=== PATIENT | male | born 1980 | race Caucasian/White ===

== ENCOUNTER 2021-01-27 19:26 | Observation (INO) | payer OTHER ==
--- NOTE | 2021-01-27 19:46 | ED ---
General Adult HPI - General Chief complaint: Chest Pain Stated complaint: Chest Pain Time Seen by Provider: 01/27/21 19:29 Source: EMS Mode of arrival: EMS Limitations: no limitations - History of Present Illness Initial comments: Dictation was produced using [email or web address] dictation software. please excuse any grammatical, word or spelling errors. This patient was cared for during a federal and state declared state of emergency secondary to Covid 19 Chief Complaint: 40-year-old incarcerated male presents emergency department for chest pain History of Present Illness: 32-year-old male he is incarcerated currently. He does not take any medications. Patient states he is here today for chest pain. He's been having chest pain over the last 3-4 days. He states his symptoms are only apparent with exertion. States that his pain is a mild pressure to his substernal area radiates to his left upper extremity. At rest he feels no sympt oms. Denies any shortness of breath. He is brought in by EMS who reports that patient has a heart block. Patient states that he was told he has abnormal cardiac EKG. He was also follow-up with cardiology but never did as he ended up getting incarcerated. According to patient this was not addressed while he was in custodial. The ROS documented in this emergency department record has been reviewed and confirmed by me. Those systems with pertinent positive or negative responses have been documented in the HPI. All other systems are other negative and/or noncontributory. PHYSICAL EXAM: General Impression: Alert and oriented x3, not in acute distress HEENT: Normocephalic atraumatic, extra-ocular movements intact, pupils equal and reactive to light bilaterally, mucous membranes moist. Cardiovascular: Heart regular rate and rhythm Chest: Able to complete full sentences, no retractions, no tachypnea Abdomen: abdomen soft, non-tender, non-distended, no organomegaly Musculoskeletal: Pulses present and equal in all extremities, no peripheral edema Motor: no focal deficits noted Neurological: CN II-XII grossly intact, no focal motor or sensory deficits noted Skin: Intact with no visualized rashes Psych: Normal affect and mood ED course: 40y old male presents with chest pain. Vital signs upon arrival shows heart rate of 45, rest of vital signs within acceptable limits. Patient's well-appearing at bedside. Denies any symptoms currently. EKG shows complete heart block. Case is discussed with Dr. Owens numerical control programmer for cardiology does not recommend any intervention at this time. He requests that the thyroid function tests be ordered and the patient be admitted for cardiac monitoring. Laboratory evaluation obtained. CBC metabolic panel is unremarkable. Troponin is negative. TSH level is normal. Chest x-ray is nonacute. Patient be admitted for cardiac monitoring and cardiology consultation. Case discussed Dr. Zepeda who is willing to accept patient's care. EKG interpretation: Ventricular rate, complete heart block, QRS 116, QTc 381. , no QTC prolongation, no ST or T-wave changes noted. - Related Data Home Medications Medication Instructions Recorded Confirmed No Known Home Medications 01/27/21 01/27/21 Allergies Allergy/AdvReac Type Severity Reaction Status Date / Time No Known Allergies Allergy Verified 01/27/21 20:18 Review of Systems ROS Statement: Those systems with pertinent positive or pertinent negative responses have been documented in the HPI. ROS Other: All systems not noted in ROS Statement are negative. Past Medical History Past Medical History: No Reported History Additional Past Medical History / Comment(s): Back pain History of Any Multi-Drug Resistant Organisms: None Reported Past Surgical History: Appendectomy Additional Past Surgical History / Comment(s): back pain Past Psychological History: No Psychological Hx Reported Smoking Status: Former smoker Past Alcohol Use History: Occasional Past Drug Use History: Marijuana General Exam Limitations: no limitations Course Vital Signs 01/27/21 01/27/21 19:28 20:35 Temperature 98.5 F Pulse Rate 45 L 46 L Respiratory 18 18 Rate Blood Pressure 140/95 149/94 O2 Sat by Pulse 98 95 Oximetry Medical Decision Making - Lab Data Result diagrams: 01/27/21 19:45 01/27/21 19:45 Lab Results 01/27/21 01/27/21 01/27/21 Range/Units 19:45 19:45 19:45 WBC 9.9 (3.8-10.6) k/uL RBC 4.51 (4.30-5.90) m/uL Hgb 14.2 (13.0-17.5) gm/dL Hct 41.7 (39.0-53.0) % MCV 92.4 (80.0-100.0) fL MCH 31.5 (25.0-35.0) pg MCHC 34.1 (31.0-37.0) g/dL RDW 12.3 (11.5-15.5) % Plt Count 228 (150-450) k/uL MPV 8.0 Neutrophils % 63 % Lymphocytes % 24 % Monocytes % 7 % Eosinophils % 2 % Basophils % 1 % Neutrophils # 6.2 (1.3-7.7) k/uL Lymphocytes # 2.4 (1.0-4.8) k/uL Monocytes # 0.7 (0-1.0) k/uL Eosinophils # 0.2 (0-0.7) k/uL Basophils # 0.1 (0-0.2) k/uL Sodium 138 (137-145) mmol/L Potassium 4.2 (3.5-5.1) mmol/L Chloride 104 (98-107) mmol/L Carbon Dioxide 24 (22-30) mmol/L Anion Gap 10 mmol/L BUN 18 (9-20) mg/dL Creatinine 1.05 (0.66-1.25) mg/dL Est GFR (CKD-EPI)AfAm >90 (>60 ml/min/1.73 sqM) Est GFR (CKD-EPI)NonAf >90 (>60 ml/min/1.73 sqM) Glucose 99 (74-99) mg/dL Calcium 9.9 (8.4-10.2) mg/dL Magnesium 2.1 (1.6-2.3) mg/dL Troponin I <0.012 (0.000-0.034) ng/mL TSH 1.960 (0.465-4.680) mIU/L Disposition Clinical Impression: Bradycardia, Chest pain Disposition: ADMITTED IP TO THIS HOSP Condition: Fair Decision Time: 21:11
[2021-01-27 19:56] LABS: Basophils # (A) 0.1 k/uL (0-0.2); Basophils % (A) 1 %; Eosinophils # (A) 0.2 k/uL (0-0.7); Eosinophils % (A) 2 %; HCT 41.7 % (39.0-53.0); HGB 14.2 gm/dL (13.0-17.5); Lymphocytes # (A) 2.4 k/uL (1.0-4.8); Lymphocytes % (A) 24 %; MCH 31.5 pg (25.0-35.0); MCHC 34.1 g/dL (31.0-37.0); MCV 92.4 fL (80.0-100.0); Monocytes # (A) 0.7 k/uL (0-1.0); Monocytes % (A) 7 %; Neutrophils # (A) 6.2 k/uL (1.3-7.7); Neutrophils % (A) 63 %; Platelet Count 228 k/uL (150-450); RBC 4.51 m/uL (4.30-5.90); RDW 12.3 % (11.5-15.5); WBC 9.9 k/uL (3.8-10.6)
[2021-01-27 20:04] LABS: African American GFR (CKD) >90 (>60 ml/min/1.73 sqM); Anion Gap 10 mmol/L; Blood Urea Nitrogen 18 mg/dL (9-20); Calcium 9.9 mg/dL (8.4-10.2); Carbon Dioxide 24 mmol/L (22-30); Chloride 104 mmol/L (98-107); Glucose 99 mg/dL (74-99); Magnesium 2.1 mg/dL (1.6-2.3); Non-African American GFR(CKD) >90 (>60 ml/min/1.73 sqM); Potassium 4.2 mmol/L (3.5-5.1); Sodium 138 mmol/L (137-145)
[2021-01-27] MEDS ORDERED: ONDANSETRON 4 MG/2 ML VIAL IVP PRN (20:32)
[2021-01-27] MEDS ORDERED: NALOXONE 0.4 MG/ML 1 ML VIAL IV PRN (20:32)
[2021-01-27] MEDS ORDERED: ASPIRIN 81 MG PO STA (20:33)
[2021-01-27] MEDS: SODIUM CHLORIDE 0.9% 1,000 ML IV SCH (20:46)
--- NOTE | 2021-01-27 20:53 | XR ---
EXAMINATION TYPE: XR chest 1V portable DATE OF EXAM: 01/27/2021 COMPARISON: 01/06/2015. HISTORY: Chest pain. TECHNIQUE: Single frontal view of the chest is obtained. FINDINGS: There is no focal air space opacity, pleural effusion, or pneumothorax seen. The cardiac silhouette size is within normal limits. The osseous structures are intact. IMPRESSION: No acute process.
[2021-01-28 07:25] LABS: African American GFR (CKD) >90 (>60 ml/min/1.73 sqM); Anion Gap 7 mmol/L; Blood Urea Nitrogen 18 mg/dL (9-20); Calcium 9.6 mg/dL (8.4-10.2); Carbon Dioxide 26 mmol/L (22-30); Chloride 104 mmol/L (98-107); Glucose 84 mg/dL (74-99); Magnesium 2.2 mg/dL (1.6-2.3); Non-African American GFR(CKD) >90 (>60 ml/min/1.73 sqM); Potassium 4.2 mmol/L (3.5-5.1); Sodium 137 mmol/L (137-145)
--- NOTE | 2021-01-28 12:21 | ECHOF ---
Referral Reason:complete heart block MEASUREMENTS -------- HEIGHT: 185.4 cm WEIGHT: 91.6 kg BP: 144/72 RVIDd: 4.5 cm (< 3.3) IVSd: 1.4 cm (0.6 - 1.1) LVIDd: 4.9 cm (3.9 - 5.3) LVPWd: 1.4 cm (0.6 - 1.1) IVSs: 2.0 cm LVIDs: 3.4 cm LVPWs: 1.9 cm LAESV Index (A-L): 36.66 ml/m Ao Diam: 3.2 cm (2.0 - 3.7) AV Cusp: 2.6 cm (1.5 - 2.6) MV EXCURSION: 20.180 mm (> 18.000) MV EF SLOPE: 108 mm/s (70 - 150) EPSS: 0.5 cm MV E Paul: 1.20 m/s MV DecT: 222 ms MV A Paul: 0.68 m/s MV E/A Ratio: 1.78 RAP: 5.00 mmHg RVSP: 33.34 mmHg FINDINGS -------- Resting bradycardia (HR<60bpm). This was a technically adequate study. The left ventricular size is normal. Left ventricular wall thickness is normal. Overall left vent ricular systolic function is low-normal with, an EF between 50 - 55 %. The right ventricle is moderate to severely enlarged. LA is moderately dilated 34-39 ml/m2 The right atrium is mildly enlarged. Interatrial and interventricular septum intact. The aortic valve is trileaflet and appears structurally normal. There is no evidence of aortic regu rgitation. There is no evidence of aortic stenosis. Qrwp-ci-prsxbxmy mitral regurgitation is present. Mild tricuspid regurgitation present. There is borderline pulmonary artery hypertension. The righ t ventricular systolic pressure, as measured by Doppler, is 33.34mmHg. There is no pulmonic regurgitation present. IVC Not well visulized. There is no pericardial effusion. CONCLUSIONS -------- 1. The left ventricular size is normal. 2. Left ventricular wall thickness is normal. 3. Overall left ventricular systolic function is low-normal with, an EF between 50 - 55 %. 4. The right ventricle is moderate to severely enlarged. 5. LA is moderately dilated 34-39 ml/m2 6. The right atrium is mildly enlarged. 7. Gdmd-yd-tnzjiftz mitral regurgitation is present. 8. Mild tricuspid regurgitation present. 9. There is borderline pulmonary artery hypertension. 10. The right ventricular systolic pressure, as measured by Doppler, is 33.34mmHg. DUTY OFFICER: Trixie Corbin RDCS
[2021-01-28] MEDS: ACETAMINOPHEN TAB 325 MG TAB PO PRN ×2 (16:06→22:19)
--- NOTE | 2021-01-28 16:41 | HP ---
HISTORY AND PHYSICAL CHIEF COMPLAINT: Dizziness. HISTORY OF PRESENT ILLNESS: This is apparently the first known admission for this 40-year-old white male brought in from the skilled nursing. He noticed dizziness which had been intermittent. When he came to the emergency room he was found to have bradycardia and what looked like a 2:1 heart block with a first-degree AV block. He has had no chest pain, history of murmurs, rheumatic fever, orthopnea, PND, fever, chills, etc. REVIEW OF SYSTEMS: Otherwise completely unremarkable. Past medical history, family history, and personal and social histories reveal that he is not on any medication and NOT ALLERGIC TO ANY. Surgically he has had an appendectomy. He does not know about a family history. He smokes a pack of cigarettes a day. He did have slight discomfort in the chest radiating toward the neck and then into the left posterior chest. He had no cough or hemoptysis. He has had no fever or chills. PHYSICAL EXAMINATION: Pulse is 48 and regular. Respirations are 15. Blood pressure is 106/70. In general he appeared to be well developed, well nourished, in no acute distress. Skin color is normal. Skin is warm and dry. Lymph nodes are not enlarged. Head, ears, eyes, nose, mouth and throat were normal. Chest is clear to auscultation and percussion. Cardiac exam demonstrated normal sinus rhythm, with no murmurs or extra sounds. He did have bradycardia. The abdomen is soft and nontender without visceromegaly or masses. Bowel sounds are present. Extremities are normal. Neurologically he is intact. IMPRESSION: 1. Dizziness related to bradycardia. 2. First-degree AV block. 3. Second-degree block. PLAN: 1. Bedrest. 2. IV fluids. 3. Cardiology consult. MMODL / IJN: [id number] /
--- NOTE | 2021-01-28 16:41 | PN ---
PROGRESS NOTE CHIEF COMPLAINT: Bradycardia. HISTORY OF PRESENT ILLNESS: This gentleman is feeling fine, but he still has a slow pulse peripherally and he is dropping QRS complexes on his EKG. PHYSICAL EXAMINATION: Cardiac exam is normal. Chest is clear. Abdomen is soft, nontender. IMPRESSION: Bradycardia with first- and second-degree heart block. PLAN: Await cardiology evaluation. MMODL / IJN: [id number] /
--- NOTE | 2021-01-28 20:51 | CONS ---
CONSULTATION This is a 40-year-old gentleman who is currently in a fpc, was brought into the emergency room because of chest pain. Apparently he comes into the hospital with complaints of having anterior and anterolateral area of chest discomfort. His symptoms seem to occur sometimes at rest, sometimes with activity; very vague but persistent. His two sets of troponins are normal. He was recently seen by my associate Dr. Ko for atypical chest pain and bradycardia, for which he was asymptomatic. He also was found to have a 2:1 heart block when he arrived in the emergency room. He is asymptomatic in terms of dizziness, lightheadedness, syncope, near-syncope. He is very comfortable but complains of chest pain. Two sets of troponins are normal. He is resting comfortably without symptoms. PAST MEDICAL HISTORY: 1. Unremarkable for any hypertension, diabetes, myocardial infarction or CVA. 2. Patient was recently seen by my associate for atypical chest pain and asymptomatic bradycardia. He was advised a Holter and stress test, but these were not performed yet. 3. He is status post appendectomy. 4. MEDICATIONS: None. ALLERGIES: NONE. REVIEW OF SYSTEMS: Remarkable for chest pain. Does not have any hematemesis or melena, genitourinary symptoms, fever or chills or cough with expectoration. The patient is a former smoker. He used to use marijuana. He used to drink alcohol occasionally. PHYSICAL EXAMINATION: On examination, blood pressure is 130/78. Pulse rate is about 50 per minute. HEENT unremarkable. Fundus was not examined by me. Neck is supple. There is no JVD. I do not hear a carotid bruit. Heart exam reveals S1, S2 heard normally. There is no rub, murmur or gallop. Bradycardia noted. Lungs are clear. Abdomen is soft, nontender. Lower extremities reveal palpable pulses. No edema. Central nervous system grossly within normal limits. EKG revealed what seems to be an ectopic atrial rhythm with some 2:1 conduction with narrow QRS and early repolarization-type changes. I had the patient ambulate, and his heart rate went up to 76 beats per minute and there was 1:1 conduction. Rhythm was then sinus. LABORATORY DATA: His laboratory data, including thyroid function tests and troponin, were all within normal limits. IMPRESSION: 1. Atypical chest pain, not suggestive of angina. 2. Asymptomatic bradycardia. Probably patient has a high vagal tone. 3. Rule out any Cardiomyopathic process. RECOMMENDATIONS: I am recommending an echocardiogram and also a regular stress test to see his chronotropic response to exercise. I did some physical activity and did some EKG tracings and there is evidence of a good increase in heart rate and he was not symptomatic. We will do echocardiogram, a regular stress test and continue to monitor him. He will require a Cardiac MR down the road. This patient's presentation does not suggest any acute myocardial ischemia. I discussed this with him at length and we will continue to follow. Thank you very much for the consult. HEMA / EMELY: [id number] / KEYANNA
[2021-01-28] MEDS: SODIUM CHLORIDE 0.9% 1,000 ML IV SCH (23:29)
[2021-01-29 11:17] VITALS: BP 133/79; PULSE 43; RESP 20; TEMP 97.8
--- NOTE | 2021-01-29 12:03 | P.STRESS ---
- Stress Test Note Stress Test Results/Findings: Exam Performed: stress test Exam Date: 01/29/21 Reason for Exam: CP, ABN ECG Height: 6 ft 1 in Weight: 90.4 kg Protocol: EXERCISE TOLERANCE TEST Stage: 2 Duration of Exercise: 3:43 Resting Heart Rate: 44 Resting Blood Pressure: 160/92 Maximum Achieved Heart Rate: 96 Maximum Achieved Blood Pressure: 194/108 85% PMHR: 155 100% PMHR: 182 METS: 5.4 Technologist Comment: TEST TERMINATED DUE TO DIZZINESS AND LIGHTHEADEDNESS EXPERIENCED BY PT Stress Test Results/Findings: Patient underwent exercise stress EKG with a Mason protocol treadmill stress test. Patient exercised into Stage 1 for a total of 3 minutes and 43 seconds reaching a total of 5.4 METS. Patient's maximum heart rate was 96 which represented 53 % age-predicted maximum heart rate. Test was terminated secondary to patient becoming lightheaded and dizzy. Stress EKG findings: At baseline patient's EKG showed sinus rhythm, second-degree Mobitz type I AV block, early repolarization, no ST or T-wave abnormalities.. At peak exercise, EKG showed improvement in conduction with continued intermittent second-degree type I AV block, no significant ST or T wave abnormalities. Conclusions: 1. Inconclusive stress EKG secondary to inability to reach 85% maximum predicted heart rate 2. 2nd degree Mobitz type 1 AV block, improved with exercise 3. Lightheadedness with exercise however with improved AV conduction with exercise consistent with 2nd degree Mobitz type 1 AV block.
--- NOTE | 2021-01-29 12:16 | PN ---
PROGRESS NOTE Mr. Morgan Rodriguez is a 40-year-old gentleman who was incarcerated, was brought in from the [place] [facility]. After he came in, he had bradycardia and I saw him for a chest pain and bradycardia. Chest pain seems atypical. Troponins are negative. Bradycardia is noted. He has what seems to be a Wenckebach type block with a narrow QRS. I had him walk in the room yesterday and heart rate went up to 76 and he went with a 1:1 conduction. Today, I had him on a treadmill. He walked for about 3 minutes 45 seconds and felt near syncopal and fatigue had hypertensive response. Heart rate went from about 48 to 106 beats per minute and he had 1:1 conduction with narrow QRS as he exercised. The stress test is inconclusive. Echo revealed good systolic function with right ventricular enlargement and the right ventricular function is fair. No other significant abnormality on the echo. This patient has probably some significant conduction system disease at a fairly young age. We have to look for other causes. I am recommending a cardiac MR to be performed and this can be done as an outpatient. The patient can be discharged. Advised not to do strenuous activity, other than activities of daily living. I discussed this with the patient as well as with the motor coach tour operator who was here and I also spoke to Dr. Zepeda and suggested that the patient can be discharged and he should have a cardiac MR as an outpatient, probably at [facility] and follow up with Dr. Ko who has seen him already in the office. Vitals are stable today. Heart rate is about 48. No JVD. S1, S2 heard normally. Lungs are clear. Abdomen and lower extremity exam unchanged. The patient can be discharged with cardiac MR as an outpatient and no rate lowering agents. He is advised to see Dr. Ko in 1 week. MMODL / IJN: [id number] /
--- NOTE | 2021-01-29 18:25 | DS ---
DISCHARGE SUMMARY CHIEF COMPLAINT: Dizziness, and bradycardia. HISTORY OF PRESENT ILLNESS AND PHYSICAL EXAMINATION: Details of this man's history and physical can be found in the initial workup. LABORATORY STUDIES: While he was in the hospital, he had laboratory studies, details of which can be found in the laboratory section of his chart. COURSE IN THE HOSPITAL: After admission, he was placed on bedrest, started intravenous fluids and he was seen by Cardiology. He was placed on a treadmill and he could not boost his heart rate, reactive with activity and became dizzy. Cardiology felt that he should have further workup which would include a cardiac MRI which was not available here. It was agreed that he would be discharged, go back to the senior care and be followed up shortly after which we will make arrangements for him to go to [facility]. FINAL DIAGNOSES: 1. Bradycardia. 2. Second-degree heart block. OPERATIONS: None. CONSULTATION: Cardiology. He is improved. MMSIRI / BETHANYN: [id number] /
== END 2021-01-29 14:43 ==
LOC: EC 19:26 → 3SCARD 20:33 → INTOOBSV 20:33 → 3SCARD 21:12 → UNDODISIN 01-29 14:43
PROVIDERS: ADMIT Family Medicine; ATTEND Family Medicine
DX: I44.2 Atrioventricular block, complete (principal); Z20.822 Contact with and (suspected) exposure to COVID-19; Z87.891 Personal history of nicotine dependence; Z90.89 Acquired absence of other organs
CPT/HCPCS: 99285; 36415; 93005; 93017; 93306; 80048 ×2; 83735 ×2; 84443; 84484 ×2; 85025; 87636; 71045; G0378 ×3

== ENCOUNTER 2021-02-04 20:41 | Emergency (ER) | payer BC, OTHER ==
--- NOTE | 2021-02-04 21:05 | ED ---
Chest Pain HPI - General Chief Complaint: Chest Pain Stated Complaint: chest Pain, [place], SOB Time Seen by Provider: 02/04/21 20:54 Source: patient, police Mode of arrival: ambulatory Limitations: no limitations - History of Present Illness Complaint: chest pain Onset/Timin -: hour(s) Onset: during rest Pain Location: left chest, right chest Pain Radiation: none Severity: moderate Quality: aching Consistency: constant Improves With: nothing Worsens With: nothing Treatments Prior to Arrival: none - Related Data Home Medications Medication Instructions Recorded Confirmed No Known Home Medications 01/27/21 02/04/21 Allergies Allergy/AdvReac Type Severity Reaction Status Date / Time No Known Allergies Allergy Verified 02/04/21 23:25 Review of Systems ROS Statement: Those systems with pertinent positive or pertinent negative responses have been documented in the HPI. ROS Other: All systems not noted in ROS Statement are negative. Constitutional: Denies: fever, chills Respiratory: Denies: cough, dyspnea Cardiovascular: Reports: as per HPI, chest pain. Denies: palpitations, dyspnea on exertion, orthopnea Gastrointestinal: Denies: abdominal pain, nausea, vomiting Genitourinary: Denies: dysuria Musculoskeletal: Denies: back pain Skin: Denies: rash Neurological: Denies: headache, weakness, numbness, paresthesias EKG Findings - EKG Results: EKG: interpreted by VÍCTOR, normal axis, normal QRS, normal ST/T EKG shows: bradycardia (Underlying rhythm appears to be sinus with A-V dissociation. There is junctional bradycardia with occasional atrial capture. Previous ECGs do show complete heart block.) Past Medical History Past Medical History: No Reported History Additional Past Medical History / Comment(s): Back pain, bradycardia, 1st degree heart block History of Any Multi-Drug Resistant Organisms: None Reported Past Surgical History: Appendectomy Additional Past Surgical History / Comment(s): back pain Past Anesthesia/Blood Transfusion Reactions: No Reported Reaction Past Psychological History: No Psychological Hx Reported Smoking Status: Former smoker Past Alcohol Use History: Occasional Past Drug Use History: Marijuana General Exam Limitations: no limitations General appearance: alert, in no apparent distress Head exam: Present: atraumatic, normocephalic Eye exam: Present: normal appearance. Absent: scleral icterus, conjunctival injection Respiratory exam: Present: normal lung sounds bilaterally. Absent: respiratory distress, wheezes, rales, rhonchi, stridor, chest wall tenderness, accessory muscle use Cardiovascular Exam: Present: normal rhythm, bradycardia, normal heart sounds. Absent: systolic murmur, diastolic murmur, rubs, gallop GI/Abdominal exam: Present: soft. Absent: distended, tenderness, guarding, rebound, rigid, mass Extremities exam: Present: normal inspection, normal capillary refill. Absent: pedal edema, calf tenderness Back exam: Present: normal inspection. Absent: CVA tenderness (R), CVA tenderness (L) Neurological exam: Present: alert Skin exam: Present: warm, dry, intact, normal color. Absent: rash Course Vital Signs 02/04/21 02/04/21 02/04/21 20:49 21:07 21:20 Temperature 97.9 F Pulse Rate 46 L 42 L Pulse Rate [ 44 L Typist ] Respiratory 16 18 Rate Blood Pressure 135/87 135/86 O2 Sat by Pulse 97 97 Oximetry 02/04/21 22:00 Temperature Pulse Rate 43 L Pulse Rate [ Typist ] Respiratory 18 Rate Blood Pressure 126/80 O2 Sat by Pulse 97 Oximetry Chest Pain [facility] Patient is 40-year-old man with recurrent episode of chest pain. Given that the pain has been present since noon, over 9 hours now, which she EKG changes or elevated cardiac enzymes which are not present. He was seen by cardiology this month, with echocardiogram and portion of a stress test completed. They do want him to follow-up to have further cardiology workup as outpatient, including probably MRI. Discussed this plan with patient who is in agreement. Disposition Clinical Impression: Chest pain Disposition: HOME SELF-CARE Condition: Good Instructions (If sedation given, give patient instructions): Chest Pain (ED) Is patient prescribed a controlled substance at d/c from ED?: No Referrals: Beto Zepeda MD [Primary Care Provider] - 1-2 days
[2021-02-04 21:19] LABS: Basophils # (A) 0.1 k/uL (0-0.2); Basophils % (A) 1 %; Eosinophils # (A) 0.3 k/uL (0-0.7); Eosinophils % (A) 3 %; HCT 42.1 % (39.0-53.0); HGB 14.4 gm/dL (13.0-17.5); Lymphocytes # (A) 2.6 k/uL (1.0-4.8); Lymphocytes % (A) 26 %; MCH 31.6 pg (25.0-35.0); MCHC 34.3 g/dL (31.0-37.0); MCV 92.3 fL (80.0-100.0); Mean Platelet Volume 8.1; Monocytes # (A) 0.6 k/uL (0-1.0); Monocytes % (A) 7 %; Neutrophils # (A) 5.9 k/uL (1.3-7.7); Neutrophils % (A) 60 %; Platelet Count 235 k/uL (150-450); RBC 4.56 m/uL (4.30-5.90); RDW 12.2 % (11.5-15.5); WBC 9.8 k/uL (3.8-10.6)
[2021-02-04 21:27] VITALS: RESP 18
[2021-02-04 21:32] LABS: INR 0.9 (<1.2); Partial Thromboplastin Time 24.5 sec (22.0-30.0)
--- NOTE | 2021-02-04 21:32 | XR ---
EXAMINATION: XR chest 2V DATE AND TIME: 02/04/2021 9:24 PM CLINICAL INDICATION: PHH; Chest Pain TECHNIQUE: PA and lateral COMPARISON: 01/27/2021 FINDINGS: The lungs are clear. The pleural spaces are negative. The cardiac silhouette is not enlarged. The remainder of the mediastinal silhouette is unremarkable. The skeletal structures and soft tissues are negative for acute findings. IMPRESSION: NO ACUTE PROCESS.
[2021-02-04 21:46] LABS: ALT 14 U/L (4-49); AST 24 U/L (17-59); African American GFR (CKD) >90 (>60 ml/min/1.73 sqM); Albumin 4.4 g/dL (3.5-5.0); Alkaline Phosphatase 64 U/L (38-126); Anion Gap 8 mmol/L; Blood Urea Nitrogen 18 mg/dL (9-20); Calcium 9.6 mg/dL (8.4-10.2); Carbon Dioxide 24 mmol/L (22-30); Chloride 107 mmol/L (98-107); Glucose 120 mg/dL (74-99); Magnesium 2.3 mg/dL (1.6-2.3); Non-African American GFR(CKD) 79 (>60 ml/min/1.73 sqM); Potassium 4.2 mmol/L (3.5-5.1); Sodium 139 mmol/L (137-145); Total Bilirubin 0.3 mg/dL (0.2-1.3); Total Protein 7.2 g/dL (6.3-8.2)
[2021-02-04 23:57] VITALS: BP 130/76; PULSE 41; TEMP 98.3
== END 2021-02-04 23:57 | disposition home or self-care (01) ==
LOC: EC 20:41
DX: R07.89 Other chest pain (principal); R06.02 Shortness of breath; R11.0 Nausea; F12.90 Cannabis use, unspecified, uncomplicated; Z87.891 Personal history of nicotine dependence
CPT/HCPCS: 36415; 71046; 80053; 83735; 84484; 85025; 85379; 85610; 85730; 93005; 99285

== ENCOUNTER 2021-02-26 09:23 | Inpatient (IN) | payer OTHER ==
--- NOTE | 2021-02-26 09:37 | ED ---
Chest Pain HPI - General Chief Complaint: Chest Pain Stated Complaint: Cardiac Time Seen by Provider: 02/26/21 09:31 Source: patient, police, RN notes reviewed Mode of arrival: ambulatory Limitations: no limitations - History of Present Illness Initial Comments: 41-year-old male presents emergency Department from cardiology office for bradycardia. Patient has been diagnosed with type II heart block. Patient states started has dropped down in the 30s even into the 20s in the past he reports. Patient is brought in with police as he is incarcerated. Patient has no complaints other than feeling fatigued. Denies chest pain shortness breath headache dizziness nausea vomiting. - Related Data Home Medications Medication Instructions Recorded Confirmed No Known Home Medications 01/27/21 02/26/21 Allergies Allergy/AdvReac Type Severity Reaction Status Date / Time No Known Allergies Allergy Verified 02/26/21 11:28 Review of Systems ROS Statement: Those systems with pertinent positive or pertinent negative responses have been documented in the HPI. ROS Other: All systems not noted in ROS Statement are negative. Past Medical History Past Medical History: No Reported History Additional Past Medical History / Comment(s): Back pain, bradycardia, 1st degree heart block History of Any Multi-Drug Resistant Organisms: None Reported Past Surgical History: Appendectomy Additional Past Surgical History / Comment(s): back pain Past Anesthesia/Blood Transfusion Reactions: No Reported Reaction Past Psychological History: No Psychological Hx Reported Smoking Status: Former smoker Past Alcohol Use History: Occasional Past Drug Use History: Marijuana General Exam Limitations: no limitations General appearance: alert, in no apparent distress Head exam: Present: atraumatic, normocephalic, normal inspection Neck exam: Present: normal inspection. Absent: tenderness, meningismus, lymphadenopathy Respiratory exam: Present: normal lung sounds bilaterally. Absent: respiratory distress, wheezes, rales, rhonchi, stridor Cardiovascular Exam: Present: normal rhythm, bradycardia, normal heart sounds. Absent: systolic murmur, diastolic murmur, rubs, gallop, clicks GI/Abdominal exam: Present: soft, normal bowel sounds. Absent: distended, tenderness, guarding, rebound, rigid Course Vital Signs 02/26/21 02/26/21 09:24 10:09 Temperature 98.3 F Pulse Rate 43 L Pulse Rate [ 33 L Journeyman Lineman ] Respiratory 18 Rate Blood Pressure 122/77 O2 Sat by Pulse 97 Oximetry Chest Pain [facility] Patient's son in for heart block patient has been bradycardic. Patient be admitted for cardiology evaluation probable pacemaker. Disposition Clinical Impression: Complete heart block, Bradycardia Disposition: ADMITTED IP TO THIS HOSP Referrals: Beto Zepeda MD [STAFF PHYSICIAN] - 1-2 days
[2021-02-26 10:14] LABS: Basophils # (A) 0.1 k/uL (0-0.2); Basophils % (A) 1 %; Eosinophils # (A) 0.3 k/uL (0-0.7); Eosinophils % (A) 4 %; HCT 45.5 % (39.0-53.0); HGB 14.8 gm/dL (13.0-17.5); Lymphocytes # (A) 2.3 k/uL (1.0-4.8); Lymphocytes % (A) 25 %; MCH 30.3 pg (25.0-35.0); MCHC 32.5 g/dL (31.0-37.0); MCV 93.3 fL (80.0-100.0); Mean Platelet Volume 8.2; Monocytes # (A) 0.6 k/uL (0-1.0); Monocytes % (A) 6 %; Neutrophils # (A) 5.5 k/uL (1.3-7.7); Neutrophils % (A) 61 %; Platelet Count 241 k/uL (150-450); RBC 4.87 m/uL (4.30-5.90); RDW 13.1 % (11.5-15.5); WBC 9.2 k/uL (3.8-10.6)
[2021-02-26 10:20] LABS: ALT 14 U/L (4-49); AST 23 U/L (17-59); African American GFR (CKD) >90 (>60 ml/min/1.73 sqM); Albumin 4.2 g/dL (3.5-5.0); Alkaline Phosphatase 54 U/L (38-126); Anion Gap 6 mmol/L; Blood Urea Nitrogen 13 mg/dL (9-20); Calcium 9.2 mg/dL (8.4-10.2); Carbon Dioxide 27 mmol/L (22-30); Chloride 107 mmol/L (98-107); Glucose 90 mg/dL (74-99); Magnesium 2.3 mg/dL (1.6-2.3); Non-African American GFR(CKD) >90 (>60 ml/min/1.73 sqM); Potassium 4.4 mmol/L (3.5-5.1); Sodium 140 mmol/L (137-145); Total Bilirubin 0.3 mg/dL (0.2-1.3); Total Protein 6.7 g/dL (6.3-8.2)
[2021-02-26 10:25] LABS: INR 0.9 (<1.2); Partial Thromboplastin Time 25.3 sec (22.0-30.0); Prothrombin Time 9.9 sec (9.0-12.0)
--- NOTE | 2021-02-26 11:34 | XR ---
EXAMINATION TYPE: XR chest 2V DATE OF EXAM: 02/26/2021 COMPARISON: Chest x-ray 02/04/2021 HISTORY: Chest pain, shortness of breath TECHNIQUE: Frontal and lateral views of the chest are obtained. FINDINGS: There is no focal air space opacity, pleural effusion, or pneumothorax seen. The cardiac silhouette size is within normal limits. There are overlying leads. The osseous structures are intac t. IMPRESSION: No acute cardiopulmonary process.
[2021-02-26] MEDS ORDERED: NALOXONE 0.4 MG/ML 1 ML VIAL IV PRN (11:39)
--- NOTE | 2021-02-26 15:21 | P.CRDCN ---
History of Present Illness History of present illness: HISTORY OF PRESENTING ILLNESS This is a pleasant 41-year-old male with no significant past medical history. He follows in the office with Dr. Ko. Patient is currently incarcerated at [facility], he presented to Dr. Ko's office this morning for a follow up appointment and was sent to the emergency department given his symptoms of dizziness, lightheadedness and bradycardia and possible permanent pacemaker placement. Patient was admitted to the hospital on 01/27/2021 with chest pain and bradycardia. EKG revealed 2:1 AV block with a narrow QRS. He underwent exercise stress test, he was able to walk for about 3 minutes and 45 seconds and felt near syncopal and fatigued and a hypertensive response and the test was stopped. His heart rate went from about 48-106 bpm and he had a 1:1 conduction with narrow QRS as he exercised. Echocardiogram revealed EF 50-55%, RV is moderately to severely enlarged, RA is mildly enlarged, milt to moderate Mitral regurgitation, mild tricuspid regurgitation, borderline pulmonary artery hypertension, with RVSP 33mmHg. He was advised to get a cardiac MRI as an outpatient and follow up with Dr. Zepeda and Dr. Ko in the outpatient setting. Patient did not follow up at [facility] to get cardiac MRI. Today, patient is seen and examined in the emergency department no acute distress. He states he does occasionally get dizzy and lightheaded. He mostly feels tired. He sometimes gets a slight headache but relates this to caffeine. He denies chest pain, shortness of breath, lower extremity edema, syncope or pre-syncope symptoms, orthopnea or PND. Denies history of diabetes, stroke, [place], or hypertension. He is a non-smoker. Occasional marijuana use. Denies alcohol use. EKG reveals sinus bradycardia with AV disassociation. Prior EKGs in the past dating back to 2014, patient in sinus bradycardia 2nd degree heart block. Laboratory data reviewed, troponin negative x 1, CBC unremarkable, sodium 140, potassium 4.4, BUN 13, serum creatinine 0.86, magnesium 2.3, TSH within normal limits, COVID-19 negative. He does not take any medications. Chest xray No acute cardiopulmonary process REVIEW OF SYSTEMS At the time of my exam: CONSTITUTIONAL: +dizziness, +lightheadedness, Denies fever or chills. CARDIOVASCULAR: Denies chest pain, shortness of breath, orthopnea, PND or palpitations. RESPIRATORY: Denies cough. GASTROINTESTINAL: Denies abdominal pain, diarrhea, constipation, nausea or vomiting. MUSCULOSKELETAL: Denies myalgias. NEUROLOGIC: +headache Denies numbness, tingling, or weakness. ENDOCRINE: Denies fatigue, weight change, polydipsia or polyurina. GENITOURINARY: Denies burning, hematuria or urgency with micturation. HEMATOLOGIC: Denies history of anemia or bleeding. PHYSICAL EXAMINATION Blood pressure 122/77 heart rate 30s-40s afebrile and maintaining oxygen saturation 98% on room air CONSTITUTIONAL: No apparent distress. HEENT: Head is normocephalic. Pupils are equal, round. Sclerae anicteric. Mucous membranes of the mouth are moist. No JVD. No carotid bruit. CHEST EXAMINATION: Lungs are clear to auscultation. No chest wall tenderness is noted on palpation or with deep breathing. HEART EXAMINATION: Bradycardic regular rate and rhythm. S1, S2 heard. No murmurs, gallops or rub. ABDOMEN: Soft, nontender. Positive bowel sounds. EXTREMITIES: 2+ peripheral pulses, no lower extremity edema and no calf tenderness. NEUROLOGIC EXAMINATION: Patient is awake, alert and oriented x3. ASSESSMENT Sinus Bradycardia, patient with symptoms of lightheadedness and dizziness. No syncope or loss of consciousness. Dating back to 2014 patient has had EKG with sinus bradycardia with 2nd degree heart block and AV dissassociation. Given patient's young age unclear etiology at this time. PLAN -We will continue to monitor patient overnight -Continue cardiac telemetry -No plan for pacemaker implantation at this time. We will continue to monitor patient. -Further recommendations to follow Nurse Practitioner note has been reviewed, I agree with a documented findings and plan of care. Patient was seen and examined. Past Medical History Past Medical History: No Reported History Additional Past Medical History / Comment(s): Back pain, bradycardia, 1st degree heart block History of Any Multi-Drug Resistant Organisms: None Reported Past Surgical History: Appendectomy Additional Past Surgical History / Comment(s): back pain Past Anesthesia/Blood Transfusion Reactions: No Reported Reaction Past Psychological History: No Psychological Hx Reported Smoking Status: Former smoker Past Alcohol Use History: Occasional Past Drug Use History: Marijuana Medications and Allergies Home Medications Medication Instructions Recorded Confirmed Type No Known Home Medications 01/27/21 02/26/21 History Allergies Allergy/AdvReac Type Severity Reaction Status Date / Time No Known Allergies Allergy Verified 02/26/21 11:28 Physical Exam Vitals: Vital Signs Temp Pulse Pulse Resp BP Pulse Ox 02/26/21 12:45 98.2 F 32 L 18 154/89 98 02/26/21 10:09 33 L 02/26/21 09:24 98.3 F 43 L 18 122/77 97 Intake and Output 02/25/21 02/26/21 02/26/21 22:59 06:59 14:59 Other: Weight 96.162 kg Results 02/26/21 09:58 02/26/21 09:58 Cardiac Enzymes 02/26/21 02/26/21 Range/Units 09:58 09:58 AST 23 (17-59) U/L Troponin I <0.012 (0.000-0.034) ng/mL Coagulation 02/26/21 Range/Units 09:58 PT 9.9 (9.0-12.0) sec APTT 25.3 (22.0-30.0) sec CBC 02/26/21 Range/Units 09:58 WBC 9.2 (3.8-10.6) k/uL RBC 4.87 (4.30-5.90) m/uL Hgb 14.8 (13.0-17.5) gm/dL Hct 45.5 (39.0-53.0) % Plt Count 241 (150-450) k/uL Comprehensive Metabolic Panel 02/26/21 Range/Units 09:58 Sodium 140 (137-145) mmol/L Potassium 4.4 (3.5-5.1) mmol/L Chloride 107 (98-107) mmol/L Carbon Dioxide 27 (22-30) mmol/L BUN 13 (9-20) mg/dL Creatinine 0.86 (0.66-1.25) mg/dL Glucose 90 (74-99) mg/dL Calcium 9.2 (8.4-10.2) mg/dL AST 23 (17-59) U/L ALT 14 (4-49) U/L Alkaline Phosphatase 54 (38-126) U/L Total Protein 6.7 (6.3-8.2) g/dL Albumin 4.2 (3.5-5.0) g/dL Current Medications Generic Name Dose Route Start Last Admin Trade Name Freq PRN Reason Stop Dose Admin Naloxone HCl 0.2 mg 02/26/21 11:39 Naloxone 0.4 Mg/Ml 1 Ml Vial IV Q2M PRN Opioid Reversal Intake and Output 02/25/21 02/26/21 02/26/21 22:59 06:59 14:59 Other: Weight 96.162 kg Patient Weight 02/27/21 06:59 Weight 96.162 kg 02/26/21 09:58 02/26/21 09:58
[2021-02-26] MEDS: HEPARIN SODIUM,PORCINE/PF 5,000 UNIT/0.5 ML SYRINGE SQ SCH (21:41)
[2021-02-26] MEDS: FAMOTIDINE 20 MG/2 ML VIAL IV SCH (21:41)
--- NOTE | 2021-02-26 21:43 | P.HPIM ---
History of Present Illness This is a pleasant 41 years old male with no significant past medical history, he is a patient of Dr. Zepeda however he is currently incarcerated and an officer is at bedside. He was sent by director of instrumental music for bradycardia, he is fol low-up for chest pain on and off, last time was about 2 weeks. Patient currently complaining only from lightheaded only but no overt dizziness, and no chest pain , dyspnea. pt is found to have sinus bradycardia , and has EKG: Second degree block and AV dissociation Patient has been evaluated by director of instrumental music and recommended monitoring now with no pacemaker Vitals and labs are stable including TSH is 2.4 which is normal Review of Systems CONSTITUTIONAL: No fever, no malaise, no fatigue. HEENT: No recent visual problems or hearing problems. Denied any sore throat. CARDIOVASCULAR: No orthopnea, PND, no palpitations, no syncope. PULMONARY: No shortness of breath, no cough, no hemoptysis. GASTROINTESTINAL: No diarrhea, no nausea, no vomiting, no abdominal pain. Normoactive bowel sounds. NEUROLOGICAL: No headaches, no weakness, no numbness. HEMATOLOGICAL: Denies any bleeding or petechiae. GENITOURINARY: Denies any burning micturition, frequency, or urgency. MUSCULOSKELETAL/RHEUMATOLOGICAL: Denies any joint pain, swelling, or any muscle pain. ENDOCRINE: Denies any polyuria or polydipsia. Past Medical History Past Medical History: No Reported History Additional Past Medical History / Comment(s): Back pain, bradycardia, 1st degree heart block History of Any Multi-Drug Resistant Organisms: None Reported Past Surgical History: Appendectomy Additional Past Surgical History / Comment(s): back pain Past Anesthesia/Blood Transfusion Reactions: No Reported Reaction Past Psychological History: No Psychological Hx Reported Smoking Status: Former smoker Past Alcohol Use History: Occasional Past Drug Use History: Marijuana - Past Family History Mother Family Medical History: Diabetes Mellitus Additional Family Medical History / Comment(s): enlarged heart Medications and Allergies Home Medications Medication Instructions Recorded Confirmed Type No Known Home Medications 01/27/21 02/26/21 History Allergies Allergy/AdvReac Type Severity Reaction Status Date / Time No Known Allergies Allergy Verified 02/26/21 11:28 Physical Exam Vitals: Vital Signs Temp Pulse Pulse Resp BP Pulse Ox 02/26/21 17:00 40 L 18 136/80 97 02/26/21 16:00 98.2 F 34 L 18 137/72 97 02/26/21 15:18 97 02/26/21 14:30 32 L 18 153/95 97 02/26/21 12:45 98.2 F 32 L 18 154/89 98 02/26/21 10:09 33 L 02/26/21 09:24 98.3 F 43 L 18 122/77 97 Intake and Output 02/26/21 02/26/21 02/26/21 06:59 14:59 22:59 Other: Weight 96.162 kg GENERAL: The patient is alert and oriented x3, not in any acute distress. Well developed, well nourished. HEENT: Pupils are round and equally reacting to light. EOMI. No scleral icterus. No conjunctival pallor. Normocephalic, atraumatic. No pharyngeal erythema. No thyromegaly. CARDIOVASCULAR: S1 and S2 present. No murmurs, rubs, or gallops. PULMONARY: Chest is clear to auscultation, no wheezing or crackles. ABDOMEN: Soft, nontender, nondistended, normoactive bowel sounds. No palpable organomegaly. MUSCULOSKELETAL: No joint swelling or deformity. EXTREMITIES: No cyanosis, clubbing, or pedal edema. NEUROLOGICAL: Gross neurological examination did not reveal any focal deficits. SKIN: No rashes. No petechiae Results CBC & Chem 7: 02/26/21 09:58 02/26/21 09:58 Assessment and Plan Assessment: Sinus bradycardia with 1 EKG showing Second degree block and AV dissociation Lightheadedness secondary to both Plan: This is a pleasant 41 years old male who presents with sinus bradycardia and lightheadedness. Cardiology of the case recommended monitoring now Labs and medication were reviewed.. Continue same treatment. Continue with symptomatic treatment. Resume home medication. Monitor lytes and vitals. DVT and GI prophylaxis. Further recommendationsas per clinical course of the patient DVT prophylaxis: Subcutaneous heparin GI Prophylaxis: Pepcid
[2021-02-27] MEDS: HEPARIN SODIUM,PORCINE/PF 5,000 UNIT/0.5 ML SYRINGE SQ SCH ×2 (08:54→20:13)
[2021-02-27] MEDS: FAMOTIDINE 20 MG/2 ML VIAL IV SCH ×2 (08:54→20:13)
[2021-02-27 09:52] LABS: African American GFR (CKD) >90 (>60 ml/min/1.73 sqM); Anion Gap 5 mmol/L; Blood Urea Nitrogen 20 mg/dL (9-20); Calcium 9.3 mg/dL (8.4-10.2); Carbon Dioxide 31 mmol/L (22-30); Chloride 104 mmol/L (98-107); Glucose 104 mg/dL (74-99); Magnesium 2.2 mg/dL (1.6-2.3); Non-African American GFR(CKD) >90 (>60 ml/min/1.73 sqM); Potassium 4.5 mmol/L (3.5-5.1); Sodium 140 mmol/L (137-145)
--- NOTE | 2021-02-27 12:52 | P.PN ---
Subjective This is a pleasant 41 years old male with no significant past medical history, he is a patient of Dr. Ramirez however he is currently incarcerated and an officer is at bedside. He was sent by global account manager for bradycardia, he is follow-up for chest pain on and off, last time was about 2 weeks. Patient currently complaining only from lightheaded only but no overt dizziness, and no chest pain , dyspnea. pt is found to have sinus bradycardia , and has EKG: Second degree block and AV dissociation Patient has been evaluated by global account manager and recommended monitoring now with no pacemaker Vitals and labs are stable including TSH is 2.4 which is normal 02/27/2021 Patients with no significant lightheadedness today. No chest pain or dyspnea. Heart rates to 38-42. CBC is unremarkable today. Prepress Proofer on the case and we will keep monitoring for now. Staff contacted Dr. ramirez told him he discharge the patient from the surface Objective - Vital Signs Vital signs: Vital Signs Temp 97.5 F L 02/27/21 08:51 Pulse 42 L 02/27/21 11:22 Resp 16 02/27/21 11:22 BP 115/68 02/27/21 11:22 Pulse Ox 96 02/27/21 11:22 Intake & Output 02/26/21 02/27/21 02/27/21 18:59 06:59 18:59 Intake Total 400 120 Balance 400 120 Weight 96.162 kg 92.4 kg Intake: Oral 400 120 Other: Voiding Method Toilet Toilet Urinal Urinal # Voids 2 - Exam GENERAL: The patient is alert and oriented x3, not in any acute distress. Well developed, well nourished. HEENT: Pupils are round and equally reacting to light. EOMI. No scleral icterus. No conjunctival pallor. Normocephalic, atraumatic. No pharyngeal erythema. No thyromegaly. CARDIOVASCULAR: S1 and S2 present. No murmurs, rubs, or gallops. PULMONARY: Chest is clear to auscultation, no wheezing or crackles. ABDOMEN: Soft, nontender, nondistended, normoactive bowel sounds. No palpable organomegaly. MUSCULOSKELETAL: No joint swelling or deformity. EXTREMITIES: No cyanosis, clubbing, or pedal edema. NEUROLOGICAL: Gross neurological examination did not reveal any focal deficits. SKIN: No rashes. no petechiae. - Labs CBC & Chem 7: 02/26/21 09:58 02/27/21 09:01 Labs: Abnormal Lab Results - Last 24 Hours (Table) 02/27/21 Range/Units 09:01 Carbon Dioxide 31 H (22-30) mmol/L Glucose 104 H (74-99) mg/dL Assessment and Plan Assessment: Sinus bradycardia with 1 EKG showing Second degree block and AV dissociation Lightheadedness secondary to both Plan: This is a pleasant 41 years old male who presents with sinus bradycardia and lightheadedness. Cardiology of the case recommended monitoring now Labs and medication were reviewed.. Continue same treatment. Continue with symptomatic treatment. Resume home medication. Monitor lytes and vitals. DVT and GI prophylaxis. Further recommendationsas per clinical course of the patient DVT prophylaxis: Subcutaneous heparin GI Prophylaxis: Pepcid
--- NOTE | 2021-02-27 13:41 | PN ---
PROGRESS NOTE Mr. Rodriguez is a 41-year-old male with known history of second-degree AV block who was admitted yesterday with symptoms of bradycardia. He has no syncope. He continues to be bradycardic with second-degree AV block with episode of Mobitz type 2. There is no clear evidence of complete heart block. He has no palpitation. No syncope. He has a headache. He denies any nausea. He continues to be at this time on heparin subcu. PHYSICAL EXAMINATION: Blood pressure 115/60 with a heart rate in the 40s. LUNGS: Clear. HEART: Regular rate and rhythm S1, S2. No S3. No rub with no gallop. ABDOMEN: Soft and nontender. EXTREMITIES: No edema. No long pauses were noted on the monitor. IMPRESSION: Episode of bradycardia with second-degree AV block that has been noted in the past dating back a few years ago. RECOMMENDATION: We will continue to observe him. He may have a congenital AV block. At this time there are no long pauses that required a pacemaker. We will observe for next 24 hours. The patient was scheduled to go to [facility] to undergo cardiac MRI because of enlargement in the right ventricle that was noted on the most recent echocardiogram. We will see how is his rhythm in the next 24 hours. If there is no significant pauses, then he may be able to be discharged and followed as an outpatient. HEMA / BETHANYN: [id number] /
[2021-02-28] MEDS: FAMOTIDINE 20 MG/2 ML VIAL IV SCH (08:06)
[2021-02-28] MEDS: HEPARIN SODIUM,PORCINE/PF 5,000 UNIT/0.5 ML SYRINGE SQ SCH ×2 (08:06→19:57)
--- NOTE | 2021-02-28 12:24 | PN ---
PROGRESS NOTE Mr. Rodriguez is a 41-year-old male who presented with symptoms of bradycardia. He has a known history of AV block. He continues to be bradycardic. He had a pause yesterday. He felt dizzy. He complains of some headache, but no chest pain. No syncope. He is on Pepcid and subcu heparin. PHYSICAL EXAMINATION: Blood pressure 120/60 with a heart rate in the 30s to 40s. LUNGS: Clear. HEART: Regular rate and rhythm S1, S2. No S3. No rub. ABDOMEN: Soft, nontender. EXTREMITIES: No edema. IMPRESSION: Bradycardia with prior episode of second-degree AV block and long pauses. RECOMMENDATION: We will continue monitoring. We will obtain the input of Dr. Dye tomorrow regarding the need for permanent pacemaker implantation. In the meantime, will continue monitoring. HEMA / BETHANYN: [id number] /
--- NOTE | 2021-02-28 12:33 | P.PN ---
Subjective This is a pleasant 41 years old male with no significant past medical history, he is a patient of Dr. Ramirez however he is currently incarcerated and an officer is at bedside. He was sent by olive picker for bradycardia, he is follow-up for chest pain on and off, last time was about 2 weeks. Patient currently complaining only from lightheaded only but no overt dizziness, and no chest pain , dyspnea. pt is found to have sinus bradycardia , and has EKG: Second degree block and AV dissociation Patient has been evaluated by olive picker and recommended monitoring now with no pacemaker Vitals and labs are stable including TSH is 2.4 which is normal 02/27/2021 Patients with no significant lightheadedness today. No chest pain or dyspnea. Heart rates to 38-42. CBC is unremarkable today. Piano Case Maker on the case and we will keep monitoring for now. Staff contacted Dr. ramirez told him he discharge the patient from the surface 02/28/2021 This is a pleasant 41 years old male who presents from senior living for lightheadedness and bradycardia. Piano Case Maker monitored him for more than 24 hours and now they're recommending to be evaluated by Dr. Donato tomorrow for possible permanent pacemaker. Other than that patient is lying in bed comfortable with no distress. However he still complaining of from lightheadedness. No chest pain or dyspnea. Objective - Vital Signs Vital signs: Vital Signs Temp 98.2 F 02/28/21 08:00 Pulse 43 L 02/28/21 11:00 Resp 16 02/28/21 11:00 BP 120/66 02/28/21 11:00 Pulse Ox 94 L 02/28/21 11:00 Intake & Output 02/27/21 02/28/21 02/28/21 18:59 06:59 18:59 Intake Total 238 236 Balance 238 236 Weight 92.8 kg Intake: Oral 238 236 Other: Voiding Method Toilet Toilet Toilet Urinal Urinal Urinal # Voids 3 2 - Exam GENERAL: The patient is alert and oriented x3, not in any acute distress. Well developed, well nourished. HEENT: Pupils are round and equally reacting to light. EOMI. No scleral icterus. No conjunctival pallor. Normocephalic, atraumatic. No pharyngeal erythema. No thyromegaly. CARDIOVASCULAR: S1 and S2 present. No murmurs, rubs, or gallops. PULMONARY: Chest is clear to auscultation, no wheezing or crackles. ABDOMEN: Soft, nontender, nondistended, normoactive bowel sounds. No palpable organomegaly. MUSCULOSKELETAL: No joint swelling or deformity. EXTREMITIES: No cyanosis, clubbing, or pedal edema. NEUROLOGICAL: Gross neurological examination did not reveal any focal deficits. SKIN: No rashes. no petechiae. - Labs CBC & Chem 7: 02/26/21 09:58 02/27/21 09:01 Assessment and Plan Assessment: Sinus bradycardia with 1 EKG showing Second degree block and AV dissociation Lightheadedness secondary to both Plan: This is a pleasant 41 years old male who presents with sinus bradycardia and lightheadedness. Cardiology of the case recommended evaluated for pacemaker tomorrow with Dr. Donato Labs and medication were reviewed.. Continue same treatment. Continue with symptomatic treatment. Resume home medication. Monitor lytes and vitals. DVT and GI prophylaxis. Further recommendationsas per clinical course of the patient DVT prophylaxis: Subcutaneous heparin GI Prophylaxis: Pepcid
[2021-02-28] MEDS: FAMOTIDINE 20 MG TAB PO SCH (19:58)
[2021-03-01] MEDS: HEPARIN SODIUM,PORCINE/PF 5,000 UNIT/0.5 ML SYRINGE SQ SCH ×2 (09:08→20:08)
[2021-03-01] MEDS: FAMOTIDINE 20 MG TAB PO SCH ×2 (09:08→20:08)
--- NOTE | 2021-03-01 13:52 | P.PN ---
Subjective Progress Note Date: 03/01/21 HISTORY OF PRESENT ILLNESS: This is a pleasant 41-year-old male with no significant past medical history. He follows in the office with Dr. Ko. [facility], he presented to Dr. Ko's office this morning for a follow up appointment and was sent to the emergency department given his symptoms of dizziness, lightheadedness and bradycardia and possible permanent pacemaker placement. Patient was admitted to the hospital on 01/27/2021 with chest pain and bradycardia. EKG revealed 2:1 AV block with a narrow QRS. He underwent exercise stress test, he was able to walk for about 3 minutes and 45 seconds and felt near syncopal and fatigued and a hypertensive response and the test was stopped. His heart rate went from about 48-106 bpm and he had a 1:1 conduction with narrow QRS as he exercised. Echocardiogram revealed EF 50-55%, RV is moderately to severely enlarged, RA is mildly enlarged, milt to moderate Mitral regurgitation, mild tricuspid regurgitation, borderline pulmonary artery hypertension, with RVSP 33mmHg. He was advised to get a cardiac MRI as an outpatient and follow up with Dr. Zepeda and Dr. Ko in the outpatient setting. Patient did not follow up at [facility] to get cardiac MRI. Today, patient is seen and examined in the emergency department no acute distress. He states he does occasionally get dizzy and lightheaded. He mostly feels tired. He sometimes gets a slight headache but relates this to caffeine. He denies chest pain, shortness of breath, lower extremity edema, syncope or pre-syncope symptoms, orthopnea or PND. Denies history of diabetes, stroke, [place], or hypertension. He is a non-smoker. Occasional marijuana use. Denies alcohol use. EKG reveals sinus bradycardia with AV disassociation. Prior EKGs in the past dating back to 2014, patient in sinus bradycardia 2nd degree heart block. Laboratory data reviewed, troponin negative x 1, CBC unremarkable, sodium 140, potassium 4.4, BUN 13, serum creatinine 0.86, magnesium 2.3, TSH within normal limits, COVID-19 negative. He does not take any medications. Chest xray No acute cardiopulmonary process 03/01/2021 Patient examined this morning at the bedside. Patient denies chest pain or pressure. Denies shortness of breath. He reports occasional dizziness and lightheadedness. EKG reviewed with Dr. Nevarez revealing complete AV dissociation. PHYSICAL EXAM: VITAL SIGNS: Reviewed. GENERAL: Well-developed in no acute distress. NECK: Supple. No JVD or thyromegaly LUNGS: Respirations even and unlabored. Lungs essentially clear to auscultation bilaterally. HEART: Regular rate and rhythm. S1 and S2 heard. EXTREMITIES: Normal range of motion. No clubbing or cyanosis. Peripheral pul ses intact. No lower extremity edema ASSESSMENT: AV dissociation Dizziness and lightheadedness Severely enlarged right ventricle PLAN: Continue to hold AV jovan blocking agents Continue telemetry monitoring Spoke with Dr. Dye regarding evaluation. He will evaluate patient today for possible PPM Patient will require cardiac MRI due to severely enlarged RV Further recommendations pending patient course Nurse practitioner note has been reviewed by physician. Signing provider agrees with the documented findings, assessment, and plan of care. Objective - Vital Signs Vital signs: Vital Signs Temp 98.1 F 03/01/21 08:00 Pulse 40 L 03/01/21 12:57 Resp 18 03/01/21 12:00 BP 116/75 03/01/21 12:00 Pulse Ox 96 03/01/21 12:00 Intake & Output 02/28/21 03/01/21 03/01/21 18:59 06:59 18:59 Intake Total 494 240 240 Balance 494 240 240 Weight 92.3 kg Intake: Oral 494 240 240 Other: Voiding Method Toilet Toilet Toilet Urinal Urinal Urinal # Voids 3 1 - Labs CBC & Chem 7: 02/26/21 09:58 02/27/21 09:01
--- NOTE | 2021-03-01 18:43 | P.EPCON ---
Electrophysiology Consult - EP Consult Electrophysiology Consult: This is Dr. Dye dictating an electrophysiology consult on this patient The patient was interviewed and examined IMPRESSION / ASSESSMENT: Complete heart block, bradycardia, narrow QRS Likely congenital complete heart block, (EKG is from 2013 reveal AV dissociation) Enlarged right ventricle and right atrium, of unclear etiology LV function appears normal on 2-D echo PLAN: Proceed with cardiac MRI first to assess right ventricular structure Subsequently biventricular pacing The role of ICD implant depending upon on the results of the MRI HPI Patient presents with recurrent dizzy spells He is found to be bradycardic He feels fatigued and tired He is not on any medications No known ALLERGIES Diagnoses she is smoking as well as marijuana use ROS: No fever chills or rigors, no cough, phlegm or expectoration, no nausea, vomiting or diarrhea, no hematuria, dysuria, no musculoskeletal complaints, no strokes or seizures, no skin lesions. EXAMINATION: Normal blood pressure 120/70 Heart rates in the 30s-40s alive normal pulse ox Resting comfortably in bed but complains of dizziness and weakness when he walks around Clear lungs on auscultation Normal heart sounds normal S1 normal S2 no murmurs Soft abdomen REVIEW OF LABS, ECG & MEDICAL DATA Normal white count, hemoglobin 14.8, platelet count 241,000 Normal electrolytes Normal renal function Normal TSH Recent stress test results reviewed. Poor exercise capacity of less than 4 minutes patient became lightheaded and dizzy Improvement in AV conduction with exercise consistent with supra-hisian AV block 2-D echo results reviewed. Right ventricle is at least moderately enlarged Atria are enlarged 2+ mitral regurgitation and mild tricuspid regurgitation and RVSP is very mildly increased LV function is normal 50-55%
[2021-03-02] MEDS: HEPARIN SODIUM,PORCINE/PF 5,000 UNIT/0.5 ML SYRINGE SQ SCH ×2 (09:27→19:53)
[2021-03-02] MEDS: FAMOTIDINE 20 MG TAB PO SCH ×2 (09:27→19:53)
--- NOTE | 2021-03-02 12:04 | P.PN ---
Subjective Progress Note Date: 03/02/21 HISTORY OF PRESENT ILLNESS: This is a pleasant 41-year-old male with no significant past medical history. He follows in the office with Dr. Ko. [facility] he presented to Dr. Ko's office this morning for a follow up appointment and was sent to the emergency department given his symptoms of dizziness, lightheadedness and bradycardia and possible permanent pacemaker placement. Patient was admitted to the hospital on 01/27/2021 with chest pain and bradycardia. EKG revealed 2:1 AV block with a narrow QRS. He underwent exercise stress test, he was able to walk for about 3 minutes and 45 seconds and felt near syncopal and fatigued and a hypertensive response and the test was stopped. His heart rate went from about 48-106 bpm and he had a 1:1 conduction with narrow QRS as he exercised. Echocardiogram revealed EF 50-55%, RV is moderately to severely enlarged, RA is mildly enlarged, milt to moderate Mitral regurgitation, mild tricuspid regurgitation, borderline pulmonary artery hypertension, with RVSP 33mmHg. He was advised to get a cardiac MRI as an outpatient and follow up with Dr. Zepeda and Dr. Ko in the outpatient setting. Patient did not follow up at [facility] to get cardiac MRI. Today, patient is seen and examined in the emergency department no acute distress. He states he does occasionally get dizzy and lightheaded. He mostly feels tired. He sometimes gets a slight headache but relates this to caffeine. He denies chest pain, shortness of breath, lower extremity edema, syncope or pre-syncope symptoms, orthopnea or PND. Denies history of diabetes, stroke, [place], or hypertension. He is a non-smoker. Occasional marijuana use. Denies alcohol use. EKG reveals sinus bradycardia with AV disassociation. Prior EKGs in the past dating back to 2014, patient in sinus bradycardia 2nd degree heart block. Laboratory data reviewed, troponin negative x 1, CBC unremarkable, sodium 140, potassium 4.4, BUN 13, serum creatinine 0.86, magnesium 2.3, TSH within normal limits, COVID-19 negative. He does not take any medications. Chest xray No acute cardiopulmonary process 03/01/2021 Patient examined this morning at the bedside. Patient denies chest pain or pressure. Denies shortness of breath. He reports occasional dizziness and lightheadedness. EKG reviewed with Dr. Nevarez revealing complete AV dissociation. 03/02/2021 Patient examined at the bedside by Dr. Nevarez. Patient denies chest pain or pressure. Denies shortness of breath. Heart rate remains in the 30s. Telemetry reveals complete heart block. PHYSICAL EXAM: VITAL SIGNS: Reviewed. GENERAL: Well-developed in no acute distress. NECK: Supple. No JVD or thyromegaly LUNGS: Respirations even and unlabored. Lungs essentially clear to auscultation bilaterally. HEART: Regular rate and rhythm. S1 and S2 heard. EXTREMITIES: Normal range of motion. No clubbing or cyanosis. Peripheral pulses intact. No lower extremity edema ASSESSMENT: AV dissociation Dizziness and lightheadedness Severely enlarged right ventricle PLAN: Continue to hold AV jovan blocking agents Continue telemetry monitoring Case management attempted to get patient scheduled at multiple hospitals for cardiac MRI. Unable to get completed until end of February or middle of March. Dr. Dye made aware of inability to obtain cardiac MRI Patient to undergo biventricular PPM insertion with Dr. Dye on No EKG patches to left chest Daily Hibiclens showers Further recommendations pending patient course Nurse practitioner note has been reviewed by physician. Signing provider agrees with the documented findings, assessment, and plan of care. Objective - Vital Signs Vital signs: Vital Signs Temp 96.8 F L 03/02/21 08:00 Pulse 37 L 03/02/21 08:00 Resp 18 03/02/21 08:00 BP 127/64 03/02/21 08:00 Pulse Ox 95 03/02/21 08:00 Intake & Output 03/01/21 03/02/21 03/02/21 18:59 06:59 18:59 Intake Total 720 240 Output Total 700 180 Balance 20 -180 240 Weight 92.6 kg Intake: Oral 720 240 Output: Urine 700 180 Other: Voiding Method Toilet Toilet Urinal Urinal # Voids 1 - Labs CBC & Chem 7: 02/26/21 09:58 02/27/21 09:01
[2021-03-02] MEDS: SODIUM CHLORIDE 0.9% 1,000 ML IV SCH ×2 (19:50)
--- NOTE | 2021-03-03 01:09 | P.PN ---
Subjective Progress Note Date: 03/01/21 Principal diagnosis: AV dissociation This is a pleasant 41 years old male with no significant past medical history, he is a patient of Dr. Ramirez however he is currently incarcerated and an officer is at bedside. He was sent by sheet heater helper for bradycardia, he is follow-up for chest pain on and off, last time was about 2 weeks. Patient currently complaining only from lightheaded only but no overt dizziness, and no chest pain , dyspnea. pt is found to have sinus bradycardia , and has EKG: Second degree block and AV dissociation Patient has been evaluated by sheet heater helper and recommended monitoring now with no pacemaker Vitals and labs are stable including TSH is 2.4 which is normal 02/27/2021 Patients with no significant lightheadedness today. No chest pain or dyspnea. Heart rates to 38-42. CBC is unremarkable today. Service Delivery Management Consultant on the case and we will keep monitoring for now. Staff contacted Dr. ramirez told him he discharge the patient from the [facility] 02/28/2021 This is a pleasant 41 years old male who presents from [facility] for lightheadedness and bradycardia. Service Delivery Management Consultant monitored him for more than 24 hours and now they're recommending to be evaluated by Dr. Donato tomorrow for possible permanent pacemaker. Other than that patient is lying in bed comfortable with no distress. However he still complaining of from lightheadedness. No chest pain or dyspnea. 03/01/2021 Patient is currently resting in the bed comfortably. No complaints of dizziness or lightheadedness. Heart rate is in 40s. EKG showed AV dissociation. Cardiology is on board. Due to severely enlarged right ventricle cardiac MRI was recommended. EP was consulted for possible PPM placement. Current medications reviewed. Objective - Vital Signs Vital signs: Vital Signs Temp 98.1 F 03/01/21 08:00 Pulse 38 L 03/01/21 08:00 Resp 18 03/01/21 08:00 BP 116/64 03/01/21 08:00 Pulse Ox 96 03/01/21 08:00 Intake & Output 02/28/21 03/01/21 03/01/21 18:59 06:59 18:59 Intake Total 494 240 Balance 494 240 Weight 92.3 kg Intake: Oral 494 240 Other: Voiding Method Toilet Toilet Urinal Urinal # Voids 3 1 - Exam - Exam GENERAL: The patient is alert and oriented x3, not in any acute distress. Well developed, well nourished. HEENT: Pupils are round and equally reacting to light. EOMI. No scleral icterus. No conjunctival pallor. Normocephalic, atraumatic. No pharyngeal erythema. No thyromegaly. CARDIOVASCULAR: S1 and S2 present. No murmurs, rubs, or gallops. PULMONARY: Chest is clear to auscultation, no wheezing or crackles. ABDOMEN: Soft, nontender, nondistended, normoactive bowel sounds. No palpable organomegaly. MUSCULOSKELETAL: No joint swelling or deformity. EXTREMITIES: No cyanosis, clubbing, or pedal edema. NEUROLOGICAL: Gross neurological examination did not reveal any focal deficits. SKIN: No rashes. no petechiae. - Labs CBC & Chem 7: 02/26/21 09:58 02/27/21 09:01 Assessment and Plan Assessment: Sinus bradycardia with EKG showing AV dissociation Lightheadedness secondary to both Severely enlarged right ventricle. Plan: This is a pleasant 41 years old male who presents with sinus bradycardia and lightheadedness. EKG showed A-V dissociation. Cardiology recommends cardiac MRI due to severely dilated right ventricle. Possible PPM placement. EP and cardiology is on board. Labs and medication were reviewed. Avoid AV jovan blocking agents. Monitor lytes and vitals. DVT and GI prophylaxis. Further recommendationsas per clinical course of the patient DVT prophylaxis: Subcutaneous heparin GI Prophylaxis: Pepcid
--- NOTE | 2021-03-03 01:11 | P.PN ---
Subjective Progress Note Date: 03/02/21 Principal diagnosis: AV dissociation This is a pleasant 41 years old male with no significant past medical history, he is a patient of Dr. Ramirez however he is currently incarcerated and an officer is at bedside. He was sent by curbstone setter for bradycardia, he is follow-up for chest pain on and off, last time was about 2 weeks. Patient currently complaining only from lightheaded only but no overt dizziness, and no chest pain , dyspnea. pt is found to have sinus bradycardia , and has EKG: Second degree block and AV dissociation Patient has been evaluated by curbstone setter and recommended monitoring now with no pacemaker Vitals and labs are stable including TSH is 2.4 which is normal 02/27/2021 Patients with no significant lightheadedness today. No chest pain or dyspnea. Heart rates to 38-42. CBC is unremarkable today. Superintendent Track on the case and we will keep monitoring for now. Staff contacted Dr. ramirez told him he discharge the patient from the [facility] 02/28/2021 This is a pleasant 41 years old male who presents from long-term for lightheadedness and bradycardia. Superintendent Track monitored him for more than 24 hours and now they're recommending to be evaluated by Dr. Donato tomorrow for possible permanent pacemaker. Other than that patient is lying in bed comfortable with no distress. However he still complaining of from lightheadedness. No chest pain or dyspnea. 03/01/2021 Patient is currently resting in the bed comfortably. No complaints of dizziness or lightheadedness. Heart rate is in 40s. EKG showed AV dissociation. Cardiology is on board. Due to severely enlarged right ventricle cardiac MRI was recommended. EP was consulted for possible PPM placement. 03/02/2021. Patient is currently resting in the bed comfortably. Heart rate in 30s. No complaints of chest pain or shortness of breath. Cardiac MRI could not be scheduled until mid March. EP is planning for PPM placement tomorrow. Patient otherwise denied any nausea vomiting abdominal pain or diarrhea. No dysuria or hematuria. No fever no chills. Cardiology is on board. Current medications reviewed. Objective - Vital Signs Vital signs: Vital Signs Temp 98.2 F 03/02/21 20:00 Pulse 41 L 03/02/21 20:00 Resp 18 03/02/21 20:00 BP 135/78 03/02/21 20:00 Pulse Ox 96 03/02/21 20:00 Intake & Output 03/02/21 03/02/21 03/03/21 06:59 18:59 06:59 Intake Total 480 Output Total 180 200 Balance -180 280 Weight 92.6 kg Intake: Oral 480 Output: Urine 180 200 Other: Voiding Method Toilet Toilet Urinal Urinal # Voids 1 2 - Exam - Exam GENERAL: The patient is alert and oriented x3, not in any acute distress. Well developed, well nourished. HEENT: Pupils are round and equally reacting to light. EOMI. No scleral icterus. No conjunctival pallor. Normocephalic, atraumatic. No pharyngeal erythema. No thyromegaly. CARDIOVASCULAR: S1 and S2 present. No murmurs, rubs, or gallops. PULMONARY: Chest is clear to auscultation, no wheezing or crackles. ABDOMEN: Soft, nontender, nondistended, normoactive bowel sounds. No palpable organomegaly. MUSCULOSKELETAL: No joint swelling or deformity. EXTREMITIES: No cyanosis, clubbing, or pedal edema. NEUROLOGICAL: Gross neurological examination did not reveal any focal deficits. SKIN: No rashes. no petechiae. - Labs CBC & Chem 7: 02/26/21 09:58 02/27/21 09:01 Assessment and Plan Assessment: Sinus bradycardia with EKG showing AV dissociation Lightheadedness secondary to both Severely enlarged right ventricle. Plan: This is a pleasant 41 years old male who presents with sinus bradycardia and lightheadedness. EKG showed A-V dissociation. Cardiology recommends cardiac MRI due to severely dilated right ventricle.Could not schedule cardiac MRI until mid March. Scheduled for PPM placement. EP and cardiology is on board. Labs and medication were reviewed. Avoid AV jovan blocking agents. c/w Tele Monitor lytes and vitals. DVT and GI prophylaxis. Further recommendationsas per clinical course of the patient DVT prophylaxis: Subcutaneous heparin GI Prophylaxis: Pepcid
[2021-03-03] MEDS: SODIUM CHLORIDE 0.9% 1,000 ML IV SCH ×2 (06:29)
[2021-03-03] MEDS ORDERED: ceFAZolin 1 GM in SODIUM CHLORIDE 0.9% 250 ML IRRIGATION PRN (07:00)
[2021-03-03] MEDS: HEPARIN SODIUM,PORCINE/PF 5,000 UNIT/0.5 ML SYRINGE SQ SCH ×2 (08:05→20:36)
[2021-03-03] MEDS: FAMOTIDINE 20 MG TAB PO SCH ×2 (08:05→20:36)
[2021-03-03 09:19] LABS: Basophils # (A) 0.1 k/uL (0-0.2); Basophils % (A) 1 %; Eosinophils # (A) 0.3 k/uL (0-0.7); Eosinophils % (A) 4 %; HCT 45.7 % (39.0-53.0); Lymphocytes # (A) 2.2 k/uL (1.0-4.8); Lymphocytes % (A) 27 %; MCHC 32.8 g/dL (31.0-37.0); MCV 94.7 fL (80.0-100.0); Mean Platelet Volume 8.3; Monocytes # (A) 0.4 k/uL (0-1.0); Monocytes % (A) 5 %; Neutrophils # (A) 5.1 k/uL (1.3-7.7); Neutrophils % (A) 61 %; Platelet Count 229 k/uL (150-450); RBC 4.83 m/uL (4.30-5.90); RDW 13.1 % (11.5-15.5); WBC 8.3 k/uL (3.8-10.6)
[2021-03-03 09:53] LABS: African American GFR (CKD) >90 (>60 ml/min/1.73 sqM); Anion Gap 6 mmol/L; Blood Urea Nitrogen 22 mg/dL (9-20); Calcium 9.3 mg/dL (8.4-10.2); Carbon Dioxide 27 mmol/L (22-30); Chloride 105 mmol/L (98-107); Glucose 116 mg/dL (74-99); Non-African American GFR(CKD) >90 (>60 ml/min/1.73 sqM); Potassium 4.3 mmol/L (3.5-5.1); Sodium 138 mmol/L (137-145)
--- NOTE | 2021-03-03 13:38 | P.PN ---
Subjective Progress Note Date: 03/03/21 HISTORY OF PRESENT ILLNESS: This is a pleasant 41-year-old male with no significant past medical history. He follows in the office with Dr. Ko. [facility] he presented to Dr. Ko's office this morning for a follow up appointment and was sent to the emergency department given his symptoms of dizziness, lightheadedness and bradycardia and possible permanent pacemaker placement. Patient was admitted to the hospital on 01/27/2021 with chest pain and bradycardia. EKG revealed 2:1 AV block with a narrow QRS. He underwent exercise stress test, he was able to walk for about 3 minutes and 45 seconds and felt near syncopal and fatigued and a hypertensive response and the test was stopped. His heart rate went from about 48-106 bpm and he had a 1:1 conduction with narrow QRS as he exercised. Echocardiogram revealed EF 50-55%, RV is moderately to severely enlarged, RA is mildly enlarged, milt to moderate Mitral regurgitation, mild tricuspid regurgitation, borderline pulmonary artery hypertension, with RVSP 33mmHg. He was advised to get a cardiac MRI as an outpatient and follow up with Dr. Zepeda and Dr. Ko in the outpatient setting. Patient did not follow up at [facility] to get cardiac MRI. Today, patient is seen and examined in the emergency department no acute distress. He states he does occasionally get dizzy and lightheaded. He mostly feels tired. He sometimes gets a slight headache but relates this to caffeine. He denies chest pain, shortness of breath, lower extremity edema, syncope or pre-syncope symptoms, orthopnea or PND. Denies history of diabetes, stroke, [place], or hypertension. He is a non-smoker. Occasional marijuana use. Denies alcohol use. EKG reveals sinus bradycardia with AV disassociation. Prior EKGs in the past dating back to 2014, patient in sinus bradycardia 2nd degree heart block. Laboratory data reviewed, troponin negative x 1, CBC unremarkable, sodium 140, potassium 4.4, BUN 13, serum creatinine 0.86, magnesium 2.3, TSH within normal limits, COVID-19 negative. He does not take any medications. Chest xray No acute cardiopulmonary process 03/01/2021 Patient examined this morning at the bedside. Patient denies chest pain or pressure. Denies shortness of breath. He reports occasional dizziness and lightheadedness. EKG reviewed with Dr. Nevarez revealing complete AV dissociation. 03/02/2021 Patient examined at the bedside by Dr. Nevarez. Patient denies chest pain or pressure. Denies shortness of breath. Heart rate remains in the 30s. Telemetry reveals complete heart block. 03/03/2021 Patient examined at the bedside. Patient denies chest pain or pressure. He denies shortness of breath. He reports mild dizziness when he is up ambulating. He remains in complete heart block. He is scheduled for pacemaker insertion tomorrow with Dr. Dye PHYSICAL EXAM: VITAL SIGNS: Reviewed. GENERAL: Well-developed in no acute distress. NECK: Supple. No JVD or thyromegaly LUNGS: Respirations even and unlabored. Lungs essentially clear to auscultation bilaterally. HEART: Regular rate and rhythm. S1 and S2 heard. EXTREMITIES: Normal range of motion. No clubbing or cyanosis. Peripheral pulses intact. No lower extremity edema ASSESSMENT: AV dissociation Dizziness and lightheadedness Severely enlarged right ventricle PLAN: Continue to hold AV jovan blocking agents Continue telemetry monitoring Patient to undergo biventricular PPM insertion with Dr. Dye tomorrow No EKG patches to left chest Daily Hibiclens showers Further recommendations pending patient course Nurse practitioner note has been reviewed by physician. Signing provider agrees with the documented findings, assessment, and plan of care. Objective - Vital Signs Vital signs: Vital Signs Temp 97.9 F 03/03/21 08:00 Pulse 35 L 03/03/21 08:00 Resp 18 03/03/21 08:00 BP 123/64 03/03/21 08:00 Pulse Ox 97 03/03/21 08:00 Intake & Output 03/02/21 03/03/21 03/03/21 18:59 06:59 18:59 Intake Total 480 780 Output Total 200 Balance 280 780 Weight 92.6 kg Intake: Oral 480 780 Output: Urine 200 Other: Voiding Method Toilet Urinal # Voids 1 2 - Labs CBC & Chem 7: 03/03/21 08:07 03/03/21 08:07 Labs: Abnormal Lab Results - Last 24 Hours (Table) 03/03/21 Range/Units 08:07 BUN 22 H (9-20) mg/dL Glucose 116 H (74-99) mg/dL
[2021-03-04] MEDS: SODIUM CHLORIDE 0.9% 1,000 ML IV SCH ×3 (03:32→20:20)
[2021-03-04 11:00] VITALS: BMI 26.5
[2021-03-04] MEDS ORDERED: fentaNYL (PF) 50 MCG/ML 2 ML AMP ONE (14:12)
[2021-03-04] MEDS ORDERED: MIDAZOLAM 2 MG/2 ML VIAL ONE (14:12)
[2021-03-04] MEDS ORDERED: diphenhydrAMINE 50 MG/ML 1 ML VIAL ONE (14:12)
[2021-03-04] MEDS ORDERED: LIDOCAINE 1% INJ 10MG/ML (20 ML MDV) ONE ×2 (14:34→15:09)
[2021-03-04] MEDS ORDERED: IV FLUID CONTINUATION 1,000 ML IV ONE (14:40)
[2021-03-04] MEDS ORDERED: IOPAMIDOL-370 50ML BTL INJ ONE ×2 (14:44→16:29)
[2021-03-04] MEDS ORDERED: LIDOCAINE 1% INJ 10MG/ML (20 ML MDV) SQ ONE (14:56)
[2021-03-04] MEDS ORDERED: LACTATED RINGERS 1,000 ML IV ONE (16:47)
[2021-03-04] MEDS ORDERED: ACETAMINOPHEN TAB 325 MG TAB PO PRN (17:05)
--- NOTE | 2021-03-04 17:12 | P.EPPROC ---
- EP Procedure Note Electrophysiology Procedure Note: Successful biventricular pacemaker implant for likely congenital complete heart block However the patient has a very enlarged and normal LV Considerations include ARVD Hence and ICD lead was placed in the right ventricle R waves were diminutive. Pacing thresholds were very high in the RV apex The RV ICD lead was screwed in the mid to high RV septum on account of the His bundle pacing attempted. His bundle signals easily mapped. Current of injury noted on the signals. However lead stability was a significant issue on account of the dilated RA and RV The lead would dislodge repeatedly and therefore an LV lead was placed in the anterior vein successfully A biventricular pacemaker was implanted, [facility] After 3-4 months cardiac MRI should be performed to look for possible arrhythmogenic cardio myopathy
--- NOTE | 2021-03-04 17:24 | P.EPPROC ---
- EP Procedure Note Electrophysiology Procedure Note: Left upper extremity venogram 10 mL every dye injected into the left arm Patent left subclavian and exit the venous system noted Plan Proceed with biventricular pacemaker implantation
[2021-03-04 17:40] VITALS: RESP 18
[2021-03-04] MEDS ORDERED: ACETAMINOPHEN IV (For NPO) 1,000 MG in EMPTY BAG 1 BAG IVPB ONE (18:00)
--- NOTE | 2021-03-04 18:03 | CE ---
CARDIAC ELECTROPHYSIOLOGY REPORT Patient of Dr. Ko who presented to the hospital with third-degree heart block (AV jovan level). In addition, the right ventricle was enlarged, but the left ventricle was normal in size. He was quite symptomatic and could barely walk on treadmill for 3- 1/2 minutes. He is brought in for a biventricular pacemaker implantation since RV pacing percentage is anticipated to be 100%. However, we attempted getting an MRI of his heart prior to this, but were not able to get it prior to the implant. The possibilities include erythemogenic cardiomyopathy which will be investigated at a later date. Patient was brought to the EP lab in a fasting state. Written informed consent was obtained prior to the procedure. The left shoulder area was prepped and draped as per protocol. 1% lidocaine was used for local anesthesia. A 4 cm incision made parallel to the deltopectoral groove, about 1.5 cm medial to it. The incision was carried down to the level of the pectoralis muscle. A subfascial pocket was made. Hemostasis was assured. The left axillary vein was accessed at 3 different points under fluoroscopy. Via appropriately-sized introducer sheaths 3 leads were positioned. The RV lead was 1st positioned. An ICD lead was selected on account of the possibility of a dysplasia. The lead was positioned in the RV apex. R-waves diminutive and the thresholds were very high. The lead was not screwed in the right ventricular apex. It was moved to the RV septum. Even at this site the R-waves were diminutive between 2.5-4 mV. Pacing thresholds were adequate at 0.75 V at 0.4 milliseconds. Pacing impedance 810 ohms. Later the DF1 pin was capped and secured to the pectoralis muscle. The RV lead was model #7122, 65 cm in length and serial number [id number]. The atrial lead was a [employer] model #2088TC, 52 cm in length and serial number [id number]. P waves were 3.9 mV. Pacing impedance of 480 ohms and pacing threshold 0.75 V at 0.4 milliseconds. 10 V test negative. His bundle pacing was attempted for management of congenital AV block. His signals were mapped very easily despite the fact that this was a large right atrium and right ventricle. However, the lead was not stable. He had an excellent position. The lead was screwed in here with excellent thresholds and nonselective capture, but once the sheath was pulled back, there was micro dislodgement with elevation in the thresholds, with a sudden rise in thresholds. Thereafter, we attempted HIS bundle pacing on multiple occasions with the exact same result namely instability of the lead despite the fact that the His bundle was very easily mapped. Therefore, the LV lead was placed. The coronary sinus was accessed and an LV lead was placed in the anterior vein. This was a [employer] cyber leader model #1458Q, 86 cm in length and serial number [id number]. Pacing threshold 0.75 V at 0.4 milliseconds. Pacing impedance 1225 ohms. All 3 leads were secured to the underlying pectoralis muscle. The leads were connected to the generator and([employer] model biventricular pacemaker model number [id number], serial #[id number]. The leads and the generator were then placed in subfascial pocket. The wound was closed in 3 layers and dressed per protocol. RESULT: Successful biventricular pacemaker implantation for congenital AV block. However, since the RV significantly enlarged (with normal LV), an ICD lead was placed in the right ventricle. Consideration for possible arrhythmogenic cardiomyopathy. The patient tolerated the procedure well without any acute complications. Device was programmed to DDD 60-130 ppm with normal AV delay and simultaneous LV/RV pacing. MMODL / IJN: [id number] /
[2021-03-04] MEDS: HEPARIN SODIUM,PORCINE/PF 5,000 UNIT/0.5 ML SYRINGE SQ SCH ×2 (18:08→20:14)
[2021-03-04] MEDS: FAMOTIDINE 20 MG TAB PO SCH ×2 (18:08→20:14)
--- NOTE | 2021-03-04 20:19 | XR ---
EXAMINATION: XR chest 1V portable DATE AND TIME: 03/04/2021 6:15 PM CLINICAL INDICATION: PHH; Lead placement check TECHNIQUE: AP portable upright COMPARISON: 02/26/2021 FINDINGS: Since the prior study a left subclavian cardiac AV pacemaker has been placed. The lungs are clear. The pleural spaces are negative. The cardiac silhouette is not enlarged. The remainder of the mediastinal silhouette is unremarkable. The skeletal structures and soft tissues are negative for acute findings. IMPRESSION: NO ACUTE PROCESS.
[2021-03-05] MEDS: HYDROcodone/APAP 5-325MG 1 EACH TAB PO PRN ×3 (00:05→09:02)
[2021-03-05 04:10] VITALS: PULSE 60
[2021-03-05 08:56] VITALS: BP 129/73; TEMP 98.1
[2021-03-05] MEDS: HEPARIN SODIUM,PORCINE/PF 5,000 UNIT/0.5 ML SYRINGE SQ SCH (09:01)
[2021-03-05] MEDS: FAMOTIDINE 20 MG TAB PO SCH (09:02)
--- NOTE | 2021-03-05 11:01 | P.PN ---
Subjective Progress Note Date: 03/03/21 Principal diagnosis: AV dissociation This is a pleasant 41 years old male with no significant past medical history, he is a patient of Dr. Ramirez however he is currently incarcerated and an officer is at bedside. He was sent by manager economic for bradycardia, he is follow-up for chest pain on and off, last time was about 2 weeks. Patient currently complaining only from lightheaded only but no overt dizziness, and no chest pain , dyspnea. pt is found to have sinus bradycardia , and has EKG: Second degree block and AV dissociation Patient has been evaluated by manager economic and recommended monitoring now with no pacemaker Vitals and labs are stable including TSH is 2.4 which is normal 02/27/2021 Patients with no significant lightheadedness today. No chest pain or dyspnea. Heart rates to 38-42. CBC is unremarkable today. Landscape Laborer on the case and we will keep monitoring for now. Staff contacted Dr. ramirez told him he discharge the patient from the [facility] 02/28/2021 This is a pleasant 41 years old male who presents from shelter for lightheadedness and bradycardia. Landscape Laborer monitored him for more than 24 hours and now they're recommending to be evaluated by Dr. Donato tomorrow for possible permanent pacemaker. Other than that patient is lying in bed comfortable with no distress. However he still complaining of from lightheadedness. No chest pain or dyspnea. 03/01/2021 Patient is currently resting in the bed comfortably. No complaints of dizziness or lightheadedness. Heart rate is in 40s. EKG showed AV dissociation. Cardiology is on board. Due to severely enlarged right ventricle cardiac MRI was recommended. EP was consulted for possible PPM placement. 03/02/2021. Patient is currently resting in the bed comfortably. Heart rate in 30s. No complaints of chest pain or shortness of breath. Cardiac MRI could not be scheduled until mid March. EP is planning for PPM placement tomorrow. Patient otherwise denied any nausea vomiting abdominal pain or diarrhea. No dysuria or hematuria. No fever no chills. Cardiology is on board. 03/03/2021 Patient is currently resting in the bed comfortably. Still having lightheadedness when he gets up and walk to the bathroom. No complaints of chest pain. Heart rate is in 30s. Cardiology is planning for pacemaker placement No nausea vomiting or abdominal pain or diarrhea. No dysuria or hematuria. No cough or sputum production. No fever no chills. Current medications reviewed. Objective - Vital Signs Vital signs: Vital Signs Temp 97.6 F 03/03/21 12:00 Pulse 41 L 03/03/21 14:00 Resp 18 03/03/21 12:00 BP 134/74 03/03/21 12:00 Pulse Ox 98 03/03/21 12:00 Intake & Output 03/02/21 03/03/21 03/03/21 18:59 06:59 18:59 Intake Total 480 780 Output Total 200 Balance 280 780 Weight 92.6 kg Intake: Oral 480 780 Output: Urine 200 Other: Voiding Method Toilet Urinal # Voids 1 2 - Exam - Exam GENERAL: The patient is alert and oriented x3, not in any acute distress. Well developed, well nourished. HEENT: Pupils are round and equally reacting to light. EOMI. No scleral icterus. No conjunctival pallor. Normocephalic, atraumatic. No pharyngeal erythema. No thyromegaly. CARDIOVASCULAR: S1 and S2 present. No murmurs, rubs, or gallops. PULMONARY: Chest is clear to auscultation, no wheezing or crackles. ABDOMEN: Soft, nontender, nondistended, normoactive bowel sounds. No palpable organomegaly. MUSCULOSKELETAL: No joint swelling or deformity. EXTREMITIES: No cyanosis, clubbing, or pedal edema. NEUROLOGICAL: Gross neurological examination did not reveal any focal deficits. SKIN: No rashes. no petechiae. - Labs CBC & Chem 7: 03/03/21 08:07 03/03/21 08:07 Labs: Abnormal Lab Results - Last 24 Hours (Table) 03/03/21 Range/Units 08:07 BUN 22 H (9-20) mg/dL Glucose 116 H (74-99) mg/dL Assessment and Plan Assessment: AV dissociation Lightheadedness secondary to both Severely enlarged right ventricle. Plan: This is a pleasant 41 years old male who presents with sinus bradycardia and lightheadedness. EKG showed A-V dissociation. Cardiology recommends cardiac MRI due to severely dilated right ventricle.Could not schedule cardiac MRI until mid March. Scheduled for PPM placement. EP and cardiology is on board. Labs and medication were reviewed. Avoid AV jovan blocking agents. c/w Tele Monitor lytes and vitals. DVT and GI prophylaxis. Further recommendationsas per clinical course of the patient DVT prophylaxis: Subcutaneous heparin GI Prophylaxis: Pepcid
--- NOTE | 2021-03-05 11:02 | P.PN ---
Subjective Progress Note Date: 03/04/21 Principal diagnosis: AV dissociation This is a pleasant 41 years old male with no significant past medical history, he is a patient of Dr. Ramirez however he is currently incarcerated and an officer is at bedside. He was sent by delivery driver assistant for bradycardia, he is follow-up for chest pain on and off, last time was about 2 weeks. Patient currently complaining only from lightheaded only but no overt dizziness, and no chest pain , dyspnea. pt is found to have sinus bradycardia , and has EKG: Second degree block and AV dissociation Patient has been evaluated by delivery driver assistant and recommended monitoring now with no pacemaker Vitals and labs are stable including TSH is 2.4 which is normal 02/27/2021 Patients with no significant lightheadedness today. No chest pain or dyspnea. Heart rates to 38-42. CBC is unremarkable today. Emissions Engineer on the case and we will keep monitoring for now. Staff contacted Dr. ramirez told him he discharge the patient from the [facility] 02/28/2021 This is a pleasant 41 years old male who presents from [facility]ness and bradycardia. Emissions Engineer monitored him for more than 24 hours and now they're recommending to be evaluated by Dr. Donato tomorrow for possible permanent pacemaker. Other than that patient is lying in bed comfortable with no distress. However he still complaining of from lightheadedness. No chest pain or dyspnea. 03/01/2021 Patient is currently resting in the bed comfortably. No complaints of dizziness or lightheadedness. Heart rate is in 40s. EKG showed AV dissociation. Cardiology is on board. Due to severely enlarged right ventricle cardiac MRI was recommended. EP was consulted for possible PPM placement. 03/02/2021. Patient is currently resting in the bed comfortably. Heart rate in 30s. No complaints of chest pain or shortness of breath. Cardiac MRI could not be scheduled until mid March. EP is planning for PPM placement tomorrow. Patient otherwise denied any nausea vomiting abdominal pain or diarrhea. No dysuria or hematuria. No fever no chills. Cardiology is on board. 03/03/2021 Patient is currently resting in the bed comfortably. Still having lightheadedness when he gets up and walk to the bathroom. No complaints of chest pain. Heart rate is in 30s. Cardiology is planning for pacemaker placement No nausea vomiting or abdominal pain or diarrhea. No dysuria or hematuria. No cough or sputum production. No fever no chills. 03/04/2021 Patient is still complaining of lightheadedness when he gets up and walk to the bathroom. Still bradycardic.patient is scheduled for biventricular pacer today. No nausea vomiting or abdominal pain or diarrhea. No headache. No fever no chills.. Current medications reviewed. Objective - Vital Signs Vital signs: Vital Signs Temp 98.1 F 03/04/21 17:38 Pulse 60 03/04/21 18:23 Resp 18 03/04/21 18:23 BP 162/84 03/04/21 18:23 Pulse Ox 96 03/04/21 18:23 Intake & Output 03/04/21 03/04/21 03/05/21 06:59 18:59 06:59 Intake Total 450 990 Balance 450 990 Weight 93.7 kg 93.7 kg Intake: IV 750 ACETAMINOPHEN IV (For NPO 100 ) 1,000 mg In Empty Bag 1 bag @ 400 mls/hr IVPB ONCE ONE Rx#:[id number] Sodium Chloride 0.9% 1, 400 000 ml @ 50 mls/hr IV . Q20H [facility] Rx#:[id number] Intake, IV Titration 450 Amount Sodium Chloride 0.9% 1, 400 000 ml @ 50 mls/hr IV . Q20H [facility] Rx#:[id number] Sodium Chloride 0.9% 1, 50 000 ml @ 50 mls/hr IV . Q20H [facility] Rx#:[id number] Oral 240 Other: Voiding Method Toilet Urinal # Voids 1 7 - Exam - Exam GENERAL: The patient is alert and oriented x3, not in any acute distress. Well developed, well nourished. HEENT: Pupils are round and equally reacting to light. EOMI. No scleral icterus. No conjunctival pallor. Normocephalic, atraumatic. No pharyngeal erythema. No thyromegaly. CARDIOVASCULAR: S1 and S2 present. No murmurs, rubs, or gallops. PULMONARY: Chest is clear to auscultation, no wheezing or crackles. ABDOMEN: Soft, nontender, nondistended, normoactive bowel sounds. No palpable organomegaly. MUSCULOSKELETAL: No joint swelling or deformity. EXTREMITIES: No cyanosis, clubbing, or pedal edema. NEUROLOGICAL: Gross neurological examination did not reveal any focal deficits. SKIN: No rashes. no petechiae. - Labs CBC & Chem 7: 03/03/21 08:07 03/03/21 08:07 Assessment and Plan Assessment: AV dissociation Lightheadedness secondary to both Severely enlarged right ventricle. Plan: This is a pleasant 41 years old male who presents with sinus bradycardia and lig htheadedness. EKG showed A-V dissociation. Cardiology recommends cardiac MRI due to severely dilated right ventricle.Could not schedule cardiac MRI until mid March. Scheduled for PPM placement. EP and cardiology is on board. Labs and medication were reviewed. Avoid AV jovna blocking agents. c/w Tele Monitor lytes and vitals. DVT and GI prophylaxis. Further recommendationsas per clinical course of the patient DVT prophylaxis: Subcutaneous heparin GI Prophylaxis: Pepcid
--- NOTE | 2021-03-05 12:58 | P.PN ---
Subjective Progress Note Date: 03/05/21 HISTORY OF PRESENT ILLNESS: This is a pleasant 41-year-old male with no significant past medical history. He follows in the office with Dr. Ko. [facility] is [facility], he presented to Dr. Ko's office this morning for a follow up appointment and was sent to the emergency department given his symptoms of dizziness, lightheadedness and bradycardia and possible permanent pacemaker placement. Patient was admitted to the hospital on 01/27/2021 with chest pain and bradycardia. EKG revealed 2:1 AV block with a narrow QRS. He underwent exercise stress test, he was able to walk for about 3 minutes and 45 seconds and felt near syncopal and fatigued and a hypertensive response and the test was stopped. His heart rate went from about 48-106 bpm and he had a 1:1 conduction with narrow QRS as he exercised. Echocardiogram revealed EF 50-55%, RV is moderately to severely enlarged, RA is mildly enlarged, milt to moderate Mitral regurgitation, mild tricuspid regurgitation, borderline pulmonary artery hypertension, with RVSP 33mmHg. He was advised to get a cardiac MRI as an outpatient and follow up with Dr. Zepeda and Dr. Ko in the outpatient setting. Patient did not follow up at [facility] to get cardiac MRI. Today, patient is seen and examined in the emergency department no acute distress. He states he does occasionally get dizzy and lightheaded. He mostly feels tired. He sometimes gets a slight headache but relates this to caffeine. He denies chest pain, shortness of breath, lower extremity edema, syncope or pre-syncope symptoms, orthopnea or PND. Denies history of diabetes, stroke, AL, or hypertension. He is a non-smoker. Occasional marijuana use. Denies alcohol use. EKG reveals sinus bradycardia with AV disassociation. Prior EKGs in the past dating back to 2014, patient in sinus bradycardia 2nd degree heart block. Laboratory data reviewed, troponin negative x 1, CBC unremarkable, sodium 140, potassium 4.4, BUN 13, serum creatinine 0.86, magnesium 2.3, TSH within normal limits, COVID-19 negative. He does not take any medications. Chest xray No acute cardiopulmonary process 03/01/2021 Patient examined this morning at the bedside. Patient denies chest pain or pressure. Denies shortness of breath. He reports occasional dizziness and lightheadedness. EKG reviewed with Dr. Nevarez revealing complete AV dissociation. 03/02/2021 Patient examined at the bedside by Dr. Nevarez. Patient denies chest pain or pressure. Denies shortness of breath. Heart rate remains in the 30s. Telemetry reveals complete heart block. 03/03/2021 Patient examined at the bedside. Patient denies chest pain or pressure. He denies shortness of breath. He reports mild dizziness when he is up ambulating. He remains in complete heart block. He is scheduled for pacemaker insertion tomorrow with Dr. Dye 03/05/2021 Patient examined this morning at the bedside. Patient underwent biventricular pacemaker implantation with Dr. Dye. CXR completed post procedure and reviewed. Patient denies chest pain or pressure. He denies shortness of breath. He denies dizziness or lightheadedness. PHYSICAL EXAM: VITAL SIGNS: Reviewed. GENERAL: Well-developed in no acute distress. NECK: Supple. No JVD or thyromegaly LUNGS: Respirations even and unlabored. Lungs essentially clear to auscultation bilaterally. HEART: Regular rate and rhythm. S1 and S2 heard. EXTREMITIES: Normal range of motion. No clubbing or cyanosis. Peripheral pulses intact. No lower extremity edema ASSESSMENT: AV dissociation Dizziness and lightheadedness Severely enlarged right ventricle PLAN: Patient is stable for discharge today from a cardiac standpoint He is to follow up on an outpatient basis Nurse practitioner note has been reviewed by physician. Signing provider agrees with the documented findings, assessment, and plan of care. Objective - Vital Signs Vital signs: Vital Signs Temp 98.1 F 03/05/21 08:00 Pulse 60 03/05/21 08:00 Resp 18 03/05/21 08:00 BP 129/73 03/05/21 08:00 Pulse Ox 96 03/05/21 08:00 Intake & Output 03/04/21 03/05/21 03/05/21 18:59 06:59 18:59 Intake Total 990 450 368 Balance 990 450 368 Weight 93.7 kg 93.1 kg Intake: IV 750 400 ACETAMINOPHEN IV (For NPO 100 ) 1,000 mg In Empty Bag 1 bag @ 400 mls/hr IVPB ONCE ONE Rx#:[id number] Sodium Chloride 0.9% 1, 400 400 000 ml @ 50 mls/hr IV . Q20H [facility] Rx#:[id number] Intake, IV Titration 50 50 Amount ceFAZolin 2 gm In Sodium 50 50 Chloride 0.9% 50 ml @ 100 mls/hr IVPB Q6H [facility] Rx#: [id number] Oral 240 318 Other: Voiding Method Toilet Urinal # Voids 7 1 - Labs CBC & Chem 7: 03/03/21 08:07 03/03/21 08:07
== END 2021-03-05 13:39 | disposition home or self-care (01) | DRG 243 ==
LOC: EC 09:23 → 3SCARD 11:30
PROVIDERS: ADMIT Internal Medicine; ATTEND Internal Medicine
PROC: 02HL3JZ Insertion of Pacemaker Lead into Left Ventricle, Percutaneous Approach (ICD-10-PCS; principal; 2021-03-04 14:30)
PROC: 02HK3JZ Insertion of Pacemaker Lead into Right Ventricle, Percutaneous Approach (ICD-10-PCS; principal; 2021-03-04 14:30)
PROC: 0JH607Z Insertion of Cardiac Resynchronization Pacemaker Pulse Generator into Chest Subcutaneous Tissue and Fascia, Open Approach (ICD-10-PCS; principal; 2021-03-04 14:30)
PROC: 02H63JZ Insertion of Pacemaker Lead into Right Atrium, Percutaneous Approach (ICD-10-PCS; principal; 2021-03-04 14:30)
DX: Q24.6 Congenital heart block (principal); I45.89 Other specified conduction disorders; I27.21 Secondary pulmonary arterial hypertension; I42.8 Other cardiomyopathies; Z20.822 Contact with and (suspected) exposure to COVID-19; M54.9 Dorsalgia, unspecified; Z87.891 Personal history of nicotine dependence; Z90.49 Acquired absence of other specified parts of digestive tract; Z87.19 Personal history of other diseases of the digestive system; Z98.890 Other specified postprocedural states; Z83.3 Family history of diabetes mellitus
CPT/HCPCS: 33208; 33225; 36415; 71045; 71046; 80048; 80053; 83735; 84443; 84484; 85025; 85610; 85730; 87635; 93005; 94760; 99285